=== PATIENT | male | born 1960 | race African-American/Black ===

== ENCOUNTER 2016-12-04 16:58 | Inpatient (IN) ==
[2016-12-04] MEDS ORDERED: ALUM/MAG/SIMETH/LIDO VISC 1:1 30 ML BOTTLE PO STA (17:38)
[2016-12-04] MEDS ORDERED: PANTOPRAZOLE 40 MG VIAL IV STA (17:38)
[2016-12-04] MEDS ORDERED: ONDANSETRON 4 MG/2 ML VIAL IV STA (17:38)
--- NOTE | 2016-12-04 17:42 | Emergency Department Note ---
Arrival - Arrival Chief Complaint: Non-Specific Stated Complaint: low heart rate ED Nursing Triage Note: c/o HR running 35 on monday. hx: CHF Mode of Arrival: Wheelchair Limitations: No Limitations Source: Patient, Family Time Seen by Provider: 12/04/16 17:36 - History of Present Illness HPI Narrative: This 56-year-old black male presents with one-week of profound weakness which began with central chest pain associated with nausea, dry heaves, diaphoresis, and shortness of breath. Symptoms persisted throughout the week and on Monday, 3 days ago, he decided to go the doctor. At the doctor he was told he had a heart rate in the 30s and needed to go the emergency room for evaluation. He did not come until today as this was his alleged first chance to come. Nausea, vomiting, diaphoresis, and central chest pressure pain have resolved however he still feels profoundly weak. Likewise in the last week he has developed symptoms of orthopnea and PND. He denies any pedal edema. Also in the mix is complaints of heartburn, water brash, and midepigastric discomfort. Currently at rest the patient is in no acute distress. Onset (ago): day(s) (Patient presents 3 days post onset of symptoms) Consistency: constant Severity: moderate Allergies/Adverse Reactions: Allergies Allergy/AdvReac Type Severity Reaction Status Date / Time Penicillins Allergy ANAPHYLAXIS Verified 08/15/16 04:44 Home Medications: Home Medications Medication Instructions Recorded Confirmed Type Aspirin EC Tab 81 mg PO DAILY 07/21/16 08/15/16 History Cetirizine HCl [Cetirizine Tab] 10 mg PO DAILY 07/21/16 08/15/16 History Cholecalciferol (Vitamin D3) 5,000 unit PO DAILY 07/21/16 08/15/16 History [Vitamin D3] Cyanocobalamin Tab [Vitamin B12 500 mcg PO DAILY 07/21/16 08/15/16 History Tab] Fluticasone 50 Mcg Nasal [place] 1 spray BOTH NARES DAILY 07/21/16 08/15/16 History [Flonase Nasal [place]] Montelukast Tab [Singulair Tab] 10 mg PO BEDTIME 07/21/16 08/15/16 History Sertraline [Zoloft] 50 mg PO DAILY 07/21/16 08/15/16 History Simvastatin 20 mg PO BEDTIME 07/21/16 08/15/16 History amLODIPine [Norvasc] 10 mg PO DAILY 07/21/16 08/15/16 History Carvedilol [Coreg] 3.125 mg PO BID #60 tablet 07/24/16 08/15/16 Rx Insulin Glargine,Hum.rec.anlog 10 unit SUBCUT BEDTIME 08/08/16 08/15/16 History [Lantus SoloStar] Latanoprost [Latanoprost 0.005 % 1 drop BOTH EYES BEDTIME 08/08/16 08/15/16 History Oph Soln] Minoxidil 2.5 mg PO BID 08/08/16 08/15/16 History Furosemide Tab [Lasix Tab] 80 mg PO BID DIURETIC #60 tablet 08/12/16 08/15/16 Rx Levothyroxine Tab [Synthroid Tab] 50 mcg PO DAILY@0700 #30 tablet 08/12/1608/15 Rx Review of System - Review of System 12 point system: reviewed and no additional remarkable complaints except as stated - Review of System Constitutional: Present: as per HPI Respiratory: Present: as per HPI Cardiovascular: Present: as per HPI Gastrointestinal: Present: as per HPI Medical,Surgical,& Family Hx - Medical History Cardio: History of: CHF, Hypertension (30 years with echocardiogram showing LVH with normal LVEF) Psychological: History of: Depression Endocrine: History of: Diabetes Mellitus (IDDM) (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), Dyslipidemia Rheumatology: History of;: Gout Respiratory: History of: Pneumonia Renal: History of: Renal Failure - Surgical History HEENT Surgeries: Surgical HX of: Eye Surgery (Bilateral cataract removal) Abdominal Surgeries: Patient denies: Abdominal Surgery - Family History Family History: Reports;: Family Diabetes (Father), Family Heart Disease ([place]- Mother and Father) - Social History Smoking Status: Never smoker Frequency of Alcohol Use: None Type of Drug Use: None Exam Physical Examination: GENERAL: Well developed, well nourished black male in no acute distress. HEENT: Normocephalic. No trauma. Moist mucous membranes. EOMI. PERRLA. ENT NML NECK: Supple. No adenopathy. CARDIAC: Regular. No murmurs. Heart rate 40 CHEST: Clear to auscultation. No respiratory distress. O2 sat 97% ABDOMEN: Soft. Midepigastric tenderness. Active bowel sounds. EXTREMITIES: No trauma. Normal ROM. No pedal edema. SKIN: No diaphoresis. No rash. NEURO: Alert. Neuro intact no focal deficits. Vital Signs: Vital Signs Temperature 97.5 F L 12/04/16 17:21 Pulse Rate 35 L 12/04/16 17:21 Respiratory Rate 18 12/04/16 17:49 Blood Pressure 197/57 12/04/16 17:21 O2 Sat by Pulse Oximetry 97 12/04/16 17:06 Course - Reevaluation(s) Reevaluation #1: Discussed with patient the need for hospitalization for severe bradycardia associated with recent OK as well as anemia. - Consultations Consultation #1: Discussed with Dr. emery who will admit for further evaluation and treatment. Results - Labs CBC & BMP: 12/04/16 17:36 Labs: I reviewed the laboratory noted the positive cardiac's as well as a greatly elevated BNP. Likewise notable is the very low hematocrit. - Impressions EKG: Third-degree heart block with ventricular rate and independent atrial rate both 35-[address] changes with evidence of anteroseptal infarct age unknown. - Diagnostic Findings Procedure: Chest x-ray: image reviewed by me, report reviewed by me ( Cardiomegaly otherwise unremarkable) Disposition Clinical Impression: Heart block, Recent [place], Congestive failure, Diabetes, Hypertension, Hyperlipidemia Case discussed with: patient, patient's family Condition: Guarded Time of Disposition: 19:20
[2016-12-04 17:59] LABS: Basophils # 0.1 10*3/uL (0.0-0.2); Basophils % 1.1 % (0.0-0.8); Eosinophils # 0.2 10*3/uL (0.0-0.87); Hematocrit 28.3 VOL% (42.0-52.0); Hemoglobin 9.1 GM/DL (14.0-18.0); Immature Granulocytes % 0.5 %; Immature Granulocytes Absolute 0.03 #; Lymphocytes # 0.9 10*3/uL (1.4-4.0); Lymphocytes % 12.8 % (21.2-54.2); Mean Corpuscular HGB Conc 32.2 GM/DL (32-36); Mean Corpuscular Hemoglobin 27 PG (27-34); Mean Corpuscular Volume 82.3 FL (87-102); Mean Platelet Volume 12.6 FL (9.6-12.0); Monocytes # 0.5 10*3/uL (0.11-0.8); Monocytes % 7.1 % (1.7-12.7); Neutrophils % 75.5 % (38.7-73.9); Platelet Count 203 T/CUMM (130-400); Red Blood Count 3.44 MC/CUMM (3.8-5.5); Red Cell Distribution Width 14.9 % (9.3-17.3); White Blood Count 6.6 T/CUMM (4-12)
[2016-12-04] MEDS ORDERED: ALUM/MAG/SIMETH/LIDO VISC 1:1 30 ML BOTTLE PO ONE (17:59)
[2016-12-04] MEDS ORDERED: PANTOPRAZOLE 40 MG VIAL IV ONE (17:59)
[2016-12-04] MEDS ORDERED: ONDANSETRON 4 MG/2 ML VIAL ONE (17:59)
--- NOTE | 2016-12-04 18:02 | XRay Report ---
Portable chest Date: 12/04/2016 Clinical history: Chest pain Comparison: 08/15/2016 Technique: Portable AP sitting chest Findings: The heart is minimally enlarged with chronic scarring in the lungs. Stable mediastinum with degenerative changes. Impression: Minimal cardiomegaly with chronic scarring in the lungs. PROCEDURE INTERPRETED AT [facility] Final Report Signed by: Dr. Shell Grissom
[2016-12-04 18:10] LABS: INR 1.1; PT Patient Result 11.8 SECS; Partial Thromboplastin Time 28.3 SECS (0-40)
[2016-12-04 18:24] LABS: Troponin I Only 0.125 NG/ML (0.00-0.045)
[2016-12-04] MEDS ORDERED: ASPIRIN 325 MG TABLET PO STA (18:57)
[2016-12-04] MEDS ORDERED: NITROGLYCERIN 2% OINT 1 INCH/GM PACK TOP STA (18:57)
[2016-12-04] MEDS ORDERED: FUROSEMIDE 40 MG/4 ML VIAL IV STA (18:58)
[2016-12-04] MEDS ORDERED: ASPIRIN 325 MG TABLET ONE (19:08)
[2016-12-04] MEDS ORDERED: ASPIRIN EC 325 MG TABLET PO ONE (19:08)
[2016-12-04] MEDS ORDERED: FUROSEMIDE 40 MG/4 ML VIAL ONE (19:08)
[2016-12-04] MEDS ORDERED: NITROGLYCERIN 2% OINT 1 INCH/GM PACK TOP ONE (19:08)
[2016-12-04 19:15] LABS: Albumin 3.3 G/DL (3.4-5.0); Bilirubin,Total 0.4 MG/DL (0.2-1.0); Calcium 7.6 MG/DL (8.5-10.1); Potassium 3.7 MMOL/L (3.5-5.1); Total Protein 6.5 G/DL (6.4-8.3)
[2016-12-04] MEDS ORDERED: GLUCAGON 1 MG VIAL IM PRN (19:15)
[2016-12-04] MEDS ORDERED: ONDANSETRON 4 MG/2 ML VIAL IV PRN (19:15)
[2016-12-04] MEDS ORDERED: HYDROmorphone 2 MG/1 ML VIAL IV PRN (19:15)
[2016-12-04] MEDS ORDERED: DEXTROSE 50% 25 GM/50 ML VIAL IV PRN (19:15)
[2016-12-04] MEDS ORDERED: NITROGLYCERIN DRIP 50 MG/250 ML BOTTLE IV ONE (20:02)
--- NOTE | 2016-12-04 20:23 | Cardiology History & Physical ---
History of Present Illness History of present illness: Cardiology history and physical 56-year-old man admitted with increasing shortness of breath and weakness and uncontrolled blood pressure. Blood pressure is 200/60. EKG shows sinus rhythm with third-degree heart block and a ventricular escape rate of 40. No chest pain. Patient also has chronic renal failure which has progressed. BUN 102 and creatinine 5.60 today. The patient was last hospitalized August 08, 2016 with uncontrolled high blood pressure and congestive heart failure. BUN was 25 creatinine 2.8 when tested 08/08/2016. He is followed by Dr. Umesh Walton. Echo Doppler at that time showed LVH with good ejection fraction. The patient has long-standing hypertension for 30 years and long-standing diabetes. Blood sugar today is 300. Patient does have a history of noncompliance. Patient states that last week he had a viral illness with nausea and vomiting and could not keep any food down. He did not take his medications. The patient was seen by Dr. Gunnar Montes his local physician this past and was told his heart rate was slow. He was instructed to return on Monday for reevaluation. The chest x-ray shows cardiomegaly with CHF. BNP level 2938. First CPK 433 and troponin level 0.125. No history of myocardial infarction. Lifetime non-smoker. Denies alcohol abuse. 5 feet 6 inches tall, 191 pounds. Occasional GE reflux symptoms. Denies melena. No documented peptic ulcer. The patient does have long- standing hypertension takes minoxidil 2.5 mg twice daily along with Lasix 80 mg twice daily carvedilol 3.25 mg twice daily and 10 mg amlodipine. His father was diabetic and of a heart attack age 56. His mother had a pacemaker and a heart attack at age 57. He has 10 siblings all of whom have hypertension. One sister had a heart attack and coronary stent. Initial lab data White count 6.6 hemoglobin 9.1 hematocrit 28.3 MCV 82 Sodium 143 potassium 3.7 chloride 106 CO2 22 BUN 102 creatinine 5.60 Glucose 300 BNP 2938 troponin 0.125 Blood pressure 196/70 pulse is 35-40 and slightly irregular O2 sat 97% on 2 L. Patient is awake alert and in no distress. Poor oral hygiene. No carotid bruit. Decreased breath sounds with few basilar crackles .no murmur abdomen obese soft benign. Femoral pulses 2+ No bruit. Distal pulses 1+.. 1+ leg edema. Impression Third-degree heart block Uncontrolled hypertension Recurrent congestive heart failure Chronic renal failure which has progressed Creatinine today 5.60 and BUN 102. Creatinine was 2.8 BUN 25 when tested August 08, 2016. Recent viral illness 1 week ago with nausea and vomiting causing volume depletion 5 feet 6 inches tall 191 pounds Microcytic anemia hemoglobin 9.1 MCV 82 Echo Doppler July 2016 showed LVH with normal EF Insight diabetic with poor control EKG shows sinus rhythm with third-degree heart block, left axis deviation right bundle branch block History of noncompliance with medication Last hospitalized July 2016 with CHF and uncontrolled blood pressure Plan Admit to CCU IV nitro glycerin Echo Doppler Will need dual-chamber pacemaker Consult Dr. Umesh Walton for chronic renal failure progression No family present at this time BMP, hemoglobin A1c level, recheck troponin in a.m. Home Medications Medication Instructions Recorded Confirmed Type Aspirin EC Tab 81 mg PO DAILY 07/21/16 08/15/16 History Cetirizine HCl [Cetirizine Tab] 10 mg PO DAILY 07/21/16 08/15/16 History Cholecalciferol (Vitamin D3) 5,000 unit PO DAILY 07/21/16 08/15/16 History [Vitamin D3] Cyanocobalamin Tab [Vitamin B12 500 mcg PO DAILY 07/21/16 08/15/16 History Tab] Fluticasone 50 Mcg Nasal [place] 1 spray BOTH NARES DAILY 07/21/16 08/15/16 History [Flonase Nasal [place]] Montelukast Tab [Singulair Tab] 10 mg PO BEDTIME 07/21/16 08/15/16 History Sertraline [Zoloft] 50 mg PO DAILY 07/21/16 08/15/16 History Simvastatin 20 mg PO BEDTIME 07/21/16 08/15/16 History amLODIPine [Norvasc] 10 mg PO DAILY 07/21/16 08/15/16 History Carvedilol [Coreg] 3.125 mg PO BID #60 tablet 07/24/16 08/15/16 Rx Insulin Glargine,Hum.rec.anlog 10 unit SUBCUT BEDTIME 08/08/16 08/15/16 History [Lantus SoloStar] Latanoprost [Latanoprost 0.005 % 1 drop BOTH EYES BEDTIME 08/08/16 08/15/16 History Oph Soln] Minoxidil 2.5 mg PO BID 08/08/16 08/15/16 History Furosemide Tab [Lasix Tab] 80 mg PO BID DIURETIC #60 tablet 08/12/16 08/15/16 Rx Levothyroxine Tab [Synthroid Tab] 50 mcg PO DAILY@0700 #30 tablet 08/12/1608/15 Rx Allergies Allergy/AdvReac Type Severity Reaction Status Date / Time Penicillins Allergy ANAPHYLAXIS Verified 08/15/16 04:44 Medical,Surgical,& Family Hx - Medical History Cardio: History of: CHF, Hypertension (30 years with echocardiogram showing LVH with normal LVEF) Psychological: History of: Depression Endocrine: History of: Diabetes Mellitus (IDDM) (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), Dyslipidemia, Thyroid Disorder Rheumatology: History of;: Gout Respiratory: History of: Pneumonia Renal: History of: Renal Failure Hematology: History of: Anemia - Surgical History HEENT Surgeries: Surgical HX of: Eye Surgery (Bilateral cataract removal) Abdominal Surgeries: Patient denies: Abdominal Surgery - Family History Family History: Reports;: Family Diabetes (Father), Family Heart Disease ([place]- Mother and Father) - Social History Smoking Status: Never smoker Frequency of Alcohol Use: None Type of Drug Use: None Cardiology Physical Exam - Constitutional Vitals: Vital Signs Temp Pulse Resp BP Pulse Ox 98.7 F 37 L 16 230/74 100 12/04/16 19:44 12/04/16 19:58 12/04/16 19:58 12/04/16 19:58 12/04/16 19:58 Intake and Output 12/04/16 12/04/16 12/04/16 07:59 15:59 23:59 Other: Weight 99.337 kg Patient Weight 12/05/16 00:59 Weight 99.337 kg Result/EKG - Labs CBC & BMP: 12/04/16 17:36 12/04/16 17:39 Labs: Laboratory Results - last 24 hr 12/04/16 19:38 POC Glucose 264 H
[2016-12-04] MEDS ORDERED: INSULIN GLARGINE 100 UNIT/ML SUBCUT SCH (21:00)
[2016-12-04] MEDS: NITROGLYCERIN DRIP 50 MG/250 ML BOTTLE IV SCH (21:02)
[2016-12-04] MEDS: INSULIN GLARGINE 100 UNIT/ML SUBCUT SCH (21:03)
[2016-12-04] MEDS: SIMVASTATIN 20 MG TABLET PO SCH (21:24)
[2016-12-04] MEDS: MONTELUKAST 10 MG TABLET PO SCH (21:25)
[2016-12-04] MEDS: MINOXIDIL 2.5 MG TABLET PO SCH (21:25)
[2016-12-04] MEDS: INSULIN REGULAR 100 UNIT/ML SUBCUT SCH (21:33)
[2016-12-04 22:01] LABS: Troponin I Only 0.127 NG/ML (0.00-0.045)
[2016-12-04] MEDS: LATANOPROST 0.005% OPH SOLN 2.5 ML BOTTLE BOTH EYES SCH (22:48)
--- NOTE | 2016-12-05 06:05 | EKG Report ---
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
[2016-12-05 06:08] LABS: INR 1.1; PT Patient Result 11.5 SECS
[2016-12-05] MEDS: LEVOTHYROXINE 50 MCG TABLET PO SCH ×2 (06:24→06:28)
[2016-12-05 06:29] LABS: Calcium 7.4 MG/DL (8.5-10.1); Osmolality,Calculated 320.8 MOS/KG (273-304); Potassium 3.8 MMOL/L (3.5-5.1); Risk Ratio 2.92; VLDL CHOLESTEROL 13.6 MG/DL
[2016-12-05 06:40] LABS: Troponin I Only 0.131 NG/ML (0.00-0.045)
--- NOTE | 2016-12-05 08:23 | Cardiology Progress Note ---
Rupert Mix Rachel RN, am scribing for, and in the presence of, Kofi Boggs MD 08:21. Assessment and Plan (1) Heart block AV third degree Status: Acute Assessment and plan: Plan for dual-chamber pacemaker. Current Visit: Yes (2) Diabetes Status: Chronic Assessment and plan: This is clinically stable. Continue current plan of care with insulin sliding scale Current Visit: Yes (3) Chronic kidney disease, stage III (moderate) Status: Acute Assessment and plan: Creatinine noted to be 5.[address] aWlton has been consulted to evaluate patient Current Visit: No (4) Elevated troponin Status: Acute Assessment and plan: Trivial troponin noted. EKG does not reveal any acute findings. He has no angina. This could be secondary to patient's heart failure and/or Renal failure. BNP of 2938 noted. Creatinine of 5.9 noted. Current Visit: No (5) Medical non-compliance Status: Acute Assessment and plan: Counseled patient on importance of medication compliance. Current Visit: No (6) Uncontrolled hypertension Status: Chronic Assessment and plan: Adjust rx Current Visit: No (7) Insulin dependent diabetes mellitus Status: Chronic Current Visit: No (8) Acute CHF Status: Acute Assessment and plan: BNP of 2938 noted. We'll recheck an echocardiogram. This appears to be be secondary to his severe renal insufficiency and/or his severe bradycardia. Current Visit: No Cardiology - PN: Subj Interval history: 56-year-old man admitted with increasing shortness of breath and weakness and uncontrolled blood pressure. Blood pressure is 200/60. EKG shows sinus rhythm with third-degree heart block and a ventricular escape rate of 40. No chest pain. Patient also has chronic renal failure which has progressed. BUN 102 and creatinine 5.60 today. The patient was last hospitalized August 08, 2016 with uncontrolled high blood pressure and congestive heart failure. BUN was 25 creatinine 2.8 when tested 08/08/2016. He is followed by Dr. Umesh Walton. Echo Doppler at that time showed LVH with good ejection fraction. The patient has long-standing hypertension for 30 years and long-standing diabetes. Patient does have a history of noncompliance. The patient was seen by Dr. Gunnar Mcadamston his local physician this past and was told his heart rate was slow. The chest x-ray shows cardiomegaly with CHF. BNP level 2938. First CPK 433 and troponin level 0.125. Echo Doppler July 2016 revealed LVH with normal ejection fraction. Patient was seen and examined in the CCU. Patient is resting in bed in no acute distress. He is currently requiring oxygen at 2 L via nasal cannula. Third-degree heart block noted per clock smith with heart rates in the 30' s. He is asymptomatic at rest but came in with fatigue and dyspnea. He also had N/V prior to admission, though this has resolved. Blood pressure is stable with systolic blood pressure of 120 noted on a Nitroglycerin drip infusing at 10 g. He currently denies CP denies shortness of breath, nausea, vomiting and palpitations. Troponin today is noted to be 0.131 which is essentially stable ( 0.127 yesterday). His creatinine is noted to be 5.9. He reports that he is not on hemodialysis. Nephrology has been consulted and will see patient today. Potassium is 3.8, magnesium is pending. Echocardiogram ordered for today. AST and ALT are also mildly elevated. Active Medications Amlodipine Besylate (Norvasc) 10 mg PO DAILY [facility] Aspirin () 81 mg PO DAILY [facility] Cetirizine HCl (Zyrtec Tab) 10 mg PO DAILY [facility] Cholecalciferol (Vitamin D3) 5,000 unit PO DAILY [facility] Dextrose/Water (D50) 25 gm IV PRN PRN PRN Reason: Hypoglycemia with IV access Fluticasone Propionate (Flonase) 1 spray BOTH NARES DAILY [facility] Glucagon () 1 mg IM PRN PRN PRN Reason: Hypoglycemia w/o IV access Nitroglycerin/Dextrose () 50 mg in 250 mls @ 6 mls/hr IV TITRATE RUBINA; 20 MCG/ MIN PRN Reason: Protocol Last Titration: 12/05/16 07:06 Dose: 10 mcg/min, 3 mls/hr Insulin Glargine (Lantus) 10 unit SUBCUT BID [facility] Last Admin: 12/04/16 21:03 Dose: Not Given Insulin Human Regular (Humulin R) 0 unit SUBCUT ACHS RUBINA PRN Reason: Protocol Last Admin: 12/04/16 21:33 Dose: 6 unit Latanoprost (Xalatan) 1 drop BOTH EYES BEDTIME RUBINA Last Admin: 12/04/16 22:48 Dose: Not Given Levothyroxine Sodium (Synthroid Tab) 50 mcg PO DAILY@0700 [facility] Last Admin: 12/05/16 06:28 Dose: Not Given Minoxidil (Loniten) 2.5 mg PO BID [facility] Last Admin: 12/04/16 21:25 Dose: 2.5 mg Montelukast Sodium (Singulair Tab) 10 mg PO BEDTIME [facility] Last Admin: 12/04/16 21:25 Dose: 10 mg Ondansetron HCl (Zofran Inj) 4 mg IV Q4H PRN PRN Reason: Nausea/Vomiting Sertraline HCl (Zoloft) 50 mg PO DAILY [facility] Simvastatin (Zocor) 20 mg PO BEDTIME [facility] Last Admin: 12/04/16 21:24 Dose: 20 mg Exam (Progress Note) - Constitutional Vitals: Period Temp Pulse Resp BP Sys/Schmidt Pulse Ox Last 24 Hr 98.3 F-98.7 F 29-73 9-24 118-230/42-74 94-100 General appearance: no acute distress, over weight - Head Head exam: Present: normal inspection, normocephalic, atraumatic - Respiratory Respiratory exam: Present: clear to auscultation bilaterally. Absent: accessory muscle use, chest wall tenderness, rales, rhonchi, stridor, wheezes - Cardiovascular Cardiovascular exam: Present: bradycardia, irregular rhythm. Absent: carotid bruit, gallop, rubs, systolic murmur - GI/Abdominal GI/Abdominal exam: Present: normal bowel sounds, soft. Absent: ascites, distended, firm, mass, tenderness - Extremities Exam Extremities exam: Present: normal inspection, normal capillary refill, other ( Normal lower extremity pulses). Absent: calf tenderness, edema - Neurological Exam Neurological exam: Present: alert, oriented X3, normal gait - Psychiatric Psychiatric exam: Present: normal affect, normal mood. Absent: agitated, anxious, depressed - Skin Skin exam: Present: normal color, warm. Absent: cyanosis, dry Result/EKG - Labs CBC & BMP: 12/04/16 17:36 12/05/16 05:24 Lab Results: I have reviewed the past 24 hour labs (Third-degree AV heart block) Labs: Laboratory Results - last 24 hr 12/04/16 12/04/16 12/05/16 19:38 21:19 05:24 INR PT Patient/Control Mix Sodium Potassium Chloride Carbon Dioxide Anion Gap BUN Creatinine GFR Calculation BUN/Creatinine Ratio Glucose POC Glucose 264 H Calculated Osmolality Calcium Total Creatine Kinase 434 H 349 H CK-MB (CK-2) 4.0 H 3.2 Troponin I 0.127 H 0.131 H Triglycerides Cholesterol LDL Cholesterol VLDL Cholesterol HDL Cholesterol Heart Disease Risk Ratio 12/05/16 12/05/16 05:24 05:24 INR 1.1 PT Patient/Control Mix 11.5 Sodium 144 Potassium 3.8 Chloride 105 Carbon Dioxide 26 Anion Gap 16.8 H BUN 106 H Creatinine 5.90 H GFR Calculation 14 BUN/Creatinine Ratio 17.00 Glucose 128 H POC Glucose Calculated Osmolality 320.8 H Calcium 7.4 L Total Creatine Kinase CK-MB (CK-2) Troponin I Triglycerides 68 Cholesterol 108 LDL Cholesterol 69.0 VLDL Cholesterol 13.6 HDL Cholesterol 37 L Heart Disease Risk Ratio 2.92 Ambrose Mix Michael, MD, personally performed the services described in this documentation, ascribed by Alla Emery RN in my presence, and it is both accurate and complete 822 .
--- NOTE | 2016-12-05 08:29 | Electrophysiology Consultation ---
History of Present Illness - Data of Consult Patient: new to practice Consult date: 12/05/16 Requesting Physician: Kofi Boggs - Consult Narrative Reason for consult: 3AVB History of present illness: Mr. Yu is a 56 year old AA male, pt of dr. Henry. Chronic kidney disease, hypertension, diabetes mellitus, gout, medication noncompliance. He was hospitalized in June 2016, for diastolic heart exacerbation, and was treated medically. He had mild demand ischemia at that time, which was treated medically. A week ago, he developed weakness, which did not resolve and finally was seen in the emergency room. She was in complete heart block. There was no syncope or palpitations. He has some mild chest discomfort. Has chronic lower extremity swelling. His CKD worsened. He was also severely hypertensive, which was controlled with nitro drip. Now feeling better, still in complete heart block with junctional escape rhythm around 40 beats per minutes. Chest x-ray showed cardiomegaly, minimal pulmonary congestion. Echo showed LVH, preserved systolic function, mild aortic valve sclerosis, without stenosis or insufficiency. Mild mitral regurgitation. Labs - crit 28. CC: Coy Martin MD - Home Medications and Allergies Home Medications: Home Medications Medication Instructions Recorded Confirmed Type Aspirin EC Tab 81 mg PO DAILY 07/21/16 12/04/16 History Cetirizine HCl [Cetirizine Tab] 10 mg PO DAILY 07/21/16 12/04/16 History Cholecalciferol (Vitamin D3) 5,000 unit PO DAILY 07/21/16 08/15/16 History [Vitamin D3] Cyanocobalamin Tab [Vitamin B12 500 mcg PO DAILY 07/21/16 12/04/16 History Tab] Fluticasone 50 Mcg Nasal [place] 1 spray BOTH NARES DAILY 07/21/16 12/04/16 History [Flonase Nasal [place]] Sertraline [Zoloft] 50 mg PO DAILY 07/21/16 12/04/16 History amLODIPine [Norvasc] 10 mg PO DAILY 07/21/16 12/04/16 History Carvedilol [Coreg] 3.125 mg PO BID #60 tablet 07/24/16 12/04/16 Rx Insulin Glargine,Hum.rec.anlog 10 unit SUBCUT BEDTIME 08/08/16 12/04/16 History [Lantus SoloStar] Latanoprost [Latanoprost 0.005 % 1 drop BOTH EYES BEDTIME 08/08/16 12/04/16 History Oph Soln] Minoxidil 2.5 mg PO BID 08/08/16 12/04/16 History Furosemide Tab [Lasix Tab] 80 mg PO BID DIURETIC #60 tablet 08/12/16 12/04/16 Rx Levothyroxine Tab [Synthroid Tab] 50 mcg PO DAILY@0700 #30 tablet 08/12/1612/04 Rx metOLazone [Metolazone] 5 mg PO BID 12/04/16 12/04/16 History methylPREDNISolone DOSEPAK [Medrol 4 mg PO DIRECTED 12/04/16 12/04/16 History Dosepak] Allergies/Adverse Reactions: Allergies Allergy/AdvReac Type Severity Reaction Status Date / Time Penicillins Allergy ANAPHYLAXIS Verified 08/15/16 04:44 Medical,Surgical,& Family Hx - Medical History Cardio: History of: CHF, Hypertension (30 years with echocardiogram showing LVH with normal LVEF) Psychological: History of: Depression Endocrine: History of: Diabetes Mellitus (IDDM) (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), Dyslipidemia, Thyroid Disorder Rheumatology: History of;: Gout Respiratory: History of: Pneumonia Renal: History of: Renal Failure Hematology: History of: Anemia - Surgical History HEENT Surgeries: Surgical HX of: Eye Surgery (Bilateral cataract removal) Abdominal Surgeries: Patient denies: Abdominal Surgery - Family History Family History: Reports;: Family Diabetes (Father), Family Heart Disease ([place]- Mother and Father) - Social History Smoking Status: Never smoker Frequency of Alcohol Use: None Type of Drug Use: None 12 point system: reviewed and no additional remarkable complaints except as stated Exam - Constitutional Vitals: Period Temp Pulse Resp BP Sys/Schmidt Pulse Ox Last 24 Hr 98.3 F-98.7 F 29-73 9-24 118-230/42-74 94-100 General appearance: no acute distress - Head Head exam: Present: normal inspection, other (elev jvp) - Eye Eye exam: Absent: conjunctival injection Pupils: Absent: dilated - ENT ENT exam: Present: normal external ear exam - Neck Neck exam: Present: normal inspection - Respiratory Respiratory exam: Present: decreased breath sounds - Cardiovascular Cardiovascular exam: Present: bradycardia, regular rate and rhythm, systolic murmur - GI/Abdominal GI/Abdominal exam: Present: normal bowel sounds - Extremities Exam Extremities exam: Present: normal inspection, normal capillary refill, other ( nu ulcers). Absent: edema - Back Exam Back exam: Present: normal inspection - Neurological Exam Neurological exam: Present: alert, oriented X3 - Psychiatric Psychiatric exam: Present: normal affect, normal mood - Skin Skin exam: Present: normal color, warm. Absent: cyanosis Results - Labs CBC & BMP: 12/04/16 17:36 12/05/16 05:24 Lab Results: I have reviewed the past 24 hour labs Assessment and Plan (1) Heart block AV third degree Status: Acute Assessment and plan: 56-year-old AA male, with symptomatic bradycardia, complete heart block, severe CKD, hypertension, medication noncompliance, diabetes, gout. -We discussed risks and benefits of management options. We will proceed with a dual-chamber pacemaker implant. Keep NPO. -We discussed importance of medication compliance to avoid worsening of his comorbidities. -PCN allergy. Will use Vancomycin for abx prophylaxis Current Visit: Yes (2) Congestive heart failure Status: Acute Current Visit: No (3) Renal failure Status: Acute Current Visit: No (4) Elevated troponin Status: Acute Current Visit: No (5) Medical non-compliance Status: Acute Current Visit: No (6) Uncontrolled hypertension Status: Chronic Current Visit: No (7) Anemia Status: Acute Current Visit: No (8) Diabetes Status: Chronic Current Visit: Yes
--- NOTE | 2016-12-05 08:30 | History and Physical Update ---
Sedation H&P Update - History and Physical H&P was reviewed, the patient examined and there: are no changes in the patients condition since last H&P was completed. - Dictation Physical: refer to H&P completed by admitting physician - Physical Exam Mental Status: alert and oriented Heart: other (regular, bradycardic) Lung: clear to auscultation Abdomen: within normal limits Vitals: within normal limits - Sedation Plan for Sedation: moderate Patient Consent: Procedure disscussed with patient and patinet has consented., Risks and benefits were discussed with patient,including infection,, bleeding, injury to surrounding structures, seizure, temporary nerve, Patient understands and accepts potential risks/benefits and agrees to ASA Class: IV Airway Assessment: Class II: Soft palate, uvula, fauces visible
[2016-12-05 08:53] LABS: Troponin I Only 0.108 NG/ML (0.00-0.045)
[2016-12-05] MEDS ORDERED: amLODIPine 10 MG TABLET PO SCH (09:00)
[2016-12-05 09:13] LABS: Free T4 (Free Thyroxine) 1.01 NG/DL (0.76-1.46); Thyroid Stimulating Hormone 2.78 uIU/ml (0.358-3.74)
[2016-12-05] MEDS ORDERED: VANCOMYCIN 500 MG VIAL IRRIG ONE (09:35)
[2016-12-05] MEDS ORDERED: VANCOMYCIN INJ 1,000 MG in SODIUM CHLORIDE 0.9% 250 ML IV ONE ×2 (09:35→23:00)
[2016-12-05] MEDS ORDERED: MIDAZOLAM 2 MG/2 ML VIAL ONE (09:40)
[2016-12-05] MEDS: INSULIN REGULAR 100 UNIT/ML SUBCUT SCH ×4 (09:40→22:10)
[2016-12-05] MEDS ORDERED: HEPARIN/NACL 0.9% 2 UNITS/ML 500 ML IV ONE (09:40)
[2016-12-05] MEDS ORDERED: fentaNYL 100 MCG/2 ML VIAL ONE (09:40)
[2016-12-05] MEDS ORDERED: LIDOCAINE 1% 20 ML VIAL ONE (09:40)
[2016-12-05] MEDS ORDERED: VANCOMYCIN 500 MG VIAL ONE (09:42)
--- NOTE | 2016-12-05 09:42 | ECHO Report ---
Danyn Yu Exam Date: 12/05/2016 08:54 Referring Physician: Technologist: Joey ESPINAL Age: 56 Ht (in): Wt (lb): Gender: M Exam Location: [facility] Echo Indications: Heart block, HTN, CHF, diabetes BP: / HR: Rhythm: Sinus Technical Quality: IMPRESSIONS Normal left ventricle size, with moderate concentric hypertrophy, with normal systolic function. Estimated left ventricle ejection fraction 55%. Mildly dilated right-sided heart chambers, with normal right ventricular systolic function. Mild left atrial enlargement. Mild, eccentric systolic and diastolic mitral regurgitation. The patient is in complete heart block, bradycardic. Mild aortic valve sclerosis, without stenosis or insufficiency. MEASUREMENTS (Male / Female) Normal Values 2D ECHO LV Diastolic Diameter PLAX 4.0 cm 4.2 - 5.9 / 3.9 - 5.3 cm LV Systolic Diameter PLAX 2.4 cm LV Fractional Shortening PLAX 39.5 % IVS Diastolic Thickness 1.7 cm 0.6 - 1.0 / 0.6 - 0.9 cm LVPW Diastolic Thickness 1.6 cm 0.6 - 1.0 / 0.6 - 0.9 cm RV Internal Dim ED PLAX 3.1 cm Aortic Root Diameter 2.7 cm LA Systolic Diameter LX 5.0 cm 3.0 - 4.0 / 2.7 - 3.8 cm DOPPLER TR Peak Velocity 303.0 cm/s TR Peak Gradient 36.7 mmHg FINDINGS Left Ventricle Normal left ventricle size, with moderate concentric hypertrophy, with normal systolic function. Estimated left ventricle ejection fraction 55%. Insufficient data to estimate diastolic function. Right Ventricle The right ventricle is mildly dilated, with a normal systolic function. Right Atrium Mild right atrial enlargement. Left Atrium Mild left atrial enlargement. Mitral Valve Structurally normal mitral valve, with systolic and diastolic mild, eccentric mitral regurgitation. Aortic Valve Mild aortic valve sclerosis, without stenosis or insufficiency. Tricuspid Valve Mild tricuspid valve regurgitation. Tricuspid regurgitation velocities suggest a PAP of 37 mmHg + RAP. Pulmonic Valve Morphologically normal pulmonic valve. Pericardium No pericardial effusion. Aorta Normal size aortic root and proximal ascending aorta. Trevor Lowery (Electronically Signed) Final Date: 05 December 2016 09:41
[2016-12-05] MEDS ORDERED: TISSUE ADHESIVE 1 EACH APPLICATOR TOP ONE (10:53)
[2016-12-05] MEDS ORDERED: oxyCODONE/ACETAMINOPHEN 5-325 MG TABLET PO PRN (11:17)
--- NOTE | 2016-12-05 11:19 | Cardiac Pacemaker ---
- Preoperative diagnosis Date of Procedure:: 12/05/16 Preoperative Diagnosis: Documented nonreversible symptomatic bradycardia due to , third degree atrioventricular block Pre-op Diagnosis: same Post-op diagnosis: same Procedure: PROCEDURAL SUMMARY DDD pacemaker implant from left axillary access. Successful procedure, no complications. PLAN Bed rest for 6 hours. Keep pressure dressing in place. CXR, ECG stat. Vancomycin 1g iv. Routine post PM implant nursing care. DIAGNOSES Complete heart block Symptomatic bradycardia CKD HTN Sedation A timeout was performed. Conscious sedation was initiated and maintained with iv. Versed and fentanyl. The patient was continuously monitored by electrocardiography, pulse oximetry and NIBP. Antibiotic prophylaxis Iv. vancomycin was used prior to the procedure. PROCEDURE The left pectoral area was meticulously prepared with ChloroPrep surgical scrub. Sterile draping was applied and Ioban was used to cover the operation site. The image intensifier was draped with a sterile bag and positioned over the patient's chest. After infiltration with 1% lidocaine, an incision was made in the left infraclavicular area, parallel to the deltopectoral groove. The incision was carried down to the level of the pectoral fascia, with careful cauterization of all bleeders. A subcutaneous pocket was then created superficial to the pectoral fascia with sharp and blunt dissection and hemostasis was achieved. A cephalic vein cutdown was performed. The glidewire did not pass into the axillary vein and the vein was then tied down. A micropuncture kit was used to access the left axillary vein. A hydrophylic guidewire was inserted under fluoroscopic guidance. A 9Fr peel-away introducer was inserted over the guidewire. The dilator of the introducer was removed, the guidewire was secured to the drape, and the right ventricular lead was passed through the introducer and advanced to the right ventricular outflow tract under fluoroscopic guidance. The introducer sheath was then removed. The ventricular lead was positioned in the right ventricular cavity using a curved stiffening stylet. The curved stylet was replaced with a straight stylet which was advanced to the electrode tip and used to deploy the active fixation mechanism. The lead was tested repeatedly for stability. A second 9 Fr peel-away introducer was inserted over the guidewire. The dilator of the introducer was removed, the guidewire was secured to the drape, and the atrial lead was passed through the introducer and advanced to the right atrium. Under fluoroscopic guidance, the atrial electrode was then positioned in the right atrial cavity using a curved stylet and tested repeatedly for stability. Lead measurements were then determined to be satisfactory as detailed below. The leads were tested for stability and phrenic nerve stimulation was excluded with pacing at 10 Volts. The leads were anchored in the subcutaneous tissue with nonabsorbable suture on the anchoring sleeve near the point of entry to the vein. The PM generator was then attached to the leads and sealed in the prescribed manner. The guidewire was removed. The wound was then flushed with Ancef and closed using a double layer of 2-0 absorbable Vicryl sutures followed by a subcuticular running suture with 4-0 Monocryl, then Exofin. A sterile dressing, then a pressure dressing was applied. The device was programmed as detailed below. Implants Device: Medtronic Advisa DDDR PM, Model [id number], SN: [id number], location: left infraclavicular Right ventricular lead: Medtronic 5076-58, SN: [id number], location: RV septum Right atrial lead: Medtronic 5076-52, SN: [id number], location: RA appendage The implanted system is MRI conditional. Measurements RA bipolar: threshold 1.4 V @ 0.5 ms, P 1.7 mV, impedance 544 Ohm RV bipolar: threshold 0.9 V @ 0.5 ms, R 6.3 mV, impedance 881 Ohm Settings DDD 60/130 Mode switch on Anesthesia: moderate conscious sedation Surgeon / Physician: Trevor Lowery Spiral Weaver: other (Dillon) Estimated blood loss: minimal Specimens: none sent Condition: stable Disposition: floor - Medications / Follow-up
--- NOTE | 2016-12-05 12:06 | XRay Report ---
Exam: XR chest 1V portable Indication: Pacemaker placement Comparison study: 12/04/2016 Findings: Left chest pacemaker device and 2 wire leads are now noted in position. There is no pneumothorax. Minimal central and basilar interstitial prominence is noted, which is nonspecific but may represent mild atelectasis. The heart, mediastinum and bony structures are otherwise stable from prior. [place] megaly is noted. There is no focal consolidation, pneumothorax or pleural effusion identified. Impression: No pneumothorax or other acute complication following pacemaker placement. Stable mild cardiomegaly and probable basilar atelectasis. PROCEDURE INTERPRETED AT [facility] DEPARTMENT OF RADIOLOGY Final Report Signed by: Zhou Lee
[2016-12-05] MEDS: FLUTICASONE 50 MCG NASAL SPRAY 16 GM BOTTLE BOTH NARES SCH (12:17)
[2016-12-05] MEDS: INSULIN GLARGINE 100 UNIT/ML SUBCUT SCH ×2 (12:18→22:11)
[2016-12-05] MEDS: ASPIRIN EC 81 MG TABLET PO SCH (12:18)
[2016-12-05] MEDS: MINOXIDIL 2.5 MG TABLET PO SCH ×2 (12:19→22:14)
[2016-12-05] MEDS: CHOLECALCIFEROL 1,000 UNIT TABLET PO SCH (12:19)
[2016-12-05] MEDS: CETIRIZINE 10 MG TABLET PO SCH (12:20)
[2016-12-05] MEDS: SERTRALINE 50 MG TABLET PO SCH (12:20)
--- NOTE | 2016-12-05 12:57 | EKG Report ---
Stationary ECG Study [facility] Test Date: 12/05/2016 12:56:15 PM Pat Name: EVELIO HAYWOOD Department: Room: 129 Gender: M Gold Stamper: : 1960 Requested by: Trevor Lowery Order Number: [id number] Reading MD: JACINTO BROWN Intervals [place] Rate: 79 P: 63 WA: 222 QRS: 251 QRSD: 171 T: 82 QT: 478 QTc: 513 Interpretive Statements ELECTRONIC VENTRICULAR PACEMAKER at 79 BPM;; appears to be tracking normal sinus rhythm NST Electronically Signed On 12-05-16 13:54:50 CDT by JACINTO BROWN [email or web address]
--- NOTE | 2016-12-05 14:28 | Nephrology Consult Note ---
History of Present Illness Chief complaint: Increased BUN and creatinine History of present illness: Mr. Yu is a 56 year old male who is followed by Dr. Walton for chronic kidney disease in the outpatient setting. The patient was admitted to the hospital yesterday for slow heart rate. The patient states he was seen by his local family medical doctor a few days ago and was told that he had a slow heart rate. The patient had been having some problems of shortness of breath and occasional chest pain for the past week or so. The patient is also been having some nausea and vomiting for a few days now. Patient also complains of some occasional chest pain. The patient was noted to have a heart rate of around 32 on presentation. The patient is now status post pacemaker placement. The patient's creatinine on presentation was around 5.6 mg/dL and remains around this level today. The patient's creatinine about 4 months ago in the hospital was around 3.2 mg/dL and on October 31, 2016 at internal medicine clinic the patient's creatinine was around 3.5 mg/dL. Patient denies any problems with decreased urination or straining to urinate. ROS: Head - positive headaches ENT - denies sore throat Lymphatics - denies lymphadenopathy Hematology -he had some nosebleeds a few days ago Heart -positive chest pain Lungs - positive shortness of breath Abdomen - denies abdominal pain Musculoskeletal -positive arthritis Skin - denies rash Neurology - denies stroke General -positive fever PE: General: in no acute distress Eyes: Pupils are round and reactive, conjunctivae are clear ENT: Nose is clear, O/P is benign Neck: Supple, no thyromegaly Lymphatics: No cervical, supraclavicular or axillary adenopathy Heart: Regular rate and rhythm, no edema Lungs: Clear to auscultation anteriorly, chest expansion symmetric Abdomen: Soft, normoactive bowel sounds, no hepatomegaly Musculoskeletal: No joint erythema or effusions or joint asymmetry Skin: Normal turgor, normal hydration, no rash Neuro/Psych: Alert and cooperative with fair insight Home Medications Medication Instructions Recorded Confirmed Type Aspirin EC Tab 81 mg PO DAILY 07/21/16 12/04/16 History Cetirizine HCl [Cetirizine Tab] 10 mg PO DAILY 07/21/16 12/04/16 History Cholecalciferol (Vitamin D3) 5,000 unit PO DAILY 07/21/16 08/15/16 History [Vitamin D3] Cyanocobalamin Tab [Vitamin B12 500 mcg PO DAILY 07/21/16 12/04/16 History Tab] Fluticasone 50 Mcg Nasal [place] 1 spray BOTH NARES DAILY 07/21/16 12/04/16 History [Flonase Nasal [place]] Sertraline [Zoloft] 50 mg PO DAILY 07/21/16 12/04/16 History amLODIPine [Norvasc] 10 mg PO DAILY 07/21/16 12/04/16 History Carvedilol [Coreg] 3.125 mg PO BID #60 tablet 07/24/16 12/04/16 Rx Insulin Glargine,Hum.rec.anlog 10 unit SUBCUT BEDTIME 08/08/16 12/04/16 History [Lantus SoloStar] Latanoprost [Latanoprost 0.005 % 1 drop BOTH EYES BEDTIME 08/08/16 12/04/16 History Oph Soln] Minoxidil 2.5 mg PO BID 08/08/16 12/04/16 History Furosemide Tab [Lasix Tab] 80 mg PO BID DIURETIC #60 tablet 08/12/16 12/04/16 Rx Levothyroxine Tab [Synthroid Tab] 50 mcg PO DAILY@0700 #30 tablet 08/12/1612/04 Rx metOLazone [Metolazone] 5 mg PO BID 12/04/16 12/04/16 History methylPREDNISolone DOSEPAK [Medrol 4 mg PO DIRECTED 12/04/16 12/04/16 History Dosepak] Allergies Allergy/AdvReac Type Severity Reaction Status Date / Time Penicillins Allergy ANAPHYLAXIS Verified 08/15/16 04:44 Medical,Surgical,& Family Hx - Medical History Cardio: History of: CHF, Hypertension (30 years with echocardiogram showing LVH with normal LVEF) Psychological: History of: Depression Endocrine: History of: Diabetes Mellitus (IDDM) (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), Dyslipidemia, Thyroid Disorder Rheumatology: History of;: Gout Respiratory: History of: Pneumonia Renal: History of: Renal Failure Hematology: History of: Anemia - Surgical History HEENT Surgeries: Surgical HX of: Eye Surgery (Bilateral cataract removal) Abdominal Surgeries: Patient denies: Abdominal Surgery - Family History Family History: Reports;: Family Diabetes (Father), Family Heart Disease ([place]- Mother and Father) - Social History Smoking Status: Never smoker Frequency of Alcohol Use: None Type of Drug Use: None Exam - Vital Signs Vital signs: Period Temp Pulse Resp BP Sys/Schmidt Pulse Ox Last 24 Hr 98.3 F-98.7 F 29-73 9-24 118-230/42-74 94-100 Results - Labs CBC & BMP: 12/04/16 17:36 12/05/16 05:24 Assessment and Plan (1) Acute renal failure superimposed on stage 4 chronic kidney disease Status: Acute Assessment and plan: This patient's baseline creatinine about a month ago was around 3.5 mg/dL it is now increased around 5.6 mg/dL. I suspect he has some acute kidney injury related to his decreased heart rate. Will monitor for improvement with the placement of his pacemaker. I do not feel any further investigation is needed at this time. Current Visit: Yes (2) Heart block AV third degree Status: Acute Assessment and plan: Patient is status post pacemaker placement now. Current Visit: Yes (3) Diabetes Status: Chronic Current Visit: Yes (4) Anemia Status: Acute Assessment and plan: Patient's hematocrit around 28% Current Visit: No (5) Hypertension Status: Chronic Current Visit: No
[2016-12-05] MEDS ORDERED: hydrALAZINE 25 MG TABLET PO PRN (17:36)
[2016-12-05] MEDS: MONTELUKAST 10 MG TABLET PO SCH (22:11)
[2016-12-05] MEDS: SIMVASTATIN 20 MG TABLET PO SCH (22:11)
[2016-12-05] MEDS: LATANOPROST 0.005% OPH SOLN 2.5 ML BOTTLE BOTH EYES SCH (22:12)
[2016-12-05] MEDS: NITROGLYCERIN DRIP 50 MG/250 ML BOTTLE IV SCH (23:04)
[2016-12-06] MEDS: NITROGLYCERIN DRIP 50 MG/250 ML BOTTLE IV SCH ×2 (03:21→20:22)
[2016-12-06 04:55] LABS: Basophils # 0.1 10*3/uL (0.0-0.2); Basophils % 0.5 % (0.0-0.8); Eosinophils # 0.4 10*3/uL (0.0-0.87); Eosinophils % 3.5 % (0.00-10.9); Hematocrit 25.8 VOL% (42.0-52.0); Hemoglobin 8.1 GM/DL (14.0-18.0); Immature Granulocytes % 0.5 %; Immature Granulocytes Absolute 0.05 #; Lymphocytes # 0.7 10*3/uL (1.4-4.0); Lymphocytes % 6.6 % (21.2-54.2); Mean Corpuscular HGB Conc 31.4 GM/DL (32-36); Mean Corpuscular Hemoglobin 26 PG (27-34); Mean Corpuscular Volume 83.8 FL (87-102); Mean Platelet Volume 11.4 FL (9.6-12.0); Monocytes # 0.8 10*3/uL (0.11-0.8); Monocytes % 7.6 % (1.7-12.7); Neutrophils # 8.5 10*3/uL (1.4-7.4); Neutrophils % 81.3 % (38.7-73.9); Platelet Count 222 T/CUMM (130-400); Red Blood Count 3.08 MC/CUMM (3.8-5.5); Red Cell Distribution Width 14.6 % (9.3-17.3); White Blood Count 10.5 T/CUMM (4-12)
[2016-12-06 05:23] LABS: Calcium 7.4 MG/DL (8.5-10.1); Osmolality,Calculated 324.4 MOS/KG (273-304); Potassium 3.7 MMOL/L (3.5-5.1)
[2016-12-06] MEDS: LEVOTHYROXINE 50 MCG TABLET PO SCH (06:24)
--- NOTE | 2016-12-06 08:40 | Nephrology Progress Note ---
Nephrology - PN: Subj Interval history: Patient feels better this morning And since having his pacemaker placed. He denies shortness of breath. Review of systems GI denies nausea or vomiting Physical exam general patient is in no acute distress, he has no pitting edema Assessment/plan 1. Acute renal failure-this patient's creatinine is improved to 4.9 mg/dL from 5.6 mg/dL yesterday, his previous baseline creatinine was around 3.5 mg/dL 2. Bradycardia-this is resolved status post pacemaker 3. Diabetes mellitus 4. Anemia Exam (PN)-Nephrology - Vital Signs Vital signs: Period Temp Pulse Resp BP Sys/Schmidt Pulse Ox Last 24 Hr 98.2 F-98.6 F 31-106 9-25 136-203/55-113 90-100 - Lab 12/06/16 04:24 12/06/16 04:24 Most recent lab results Calcium 7.4 MG/DL (8.5-10.1) L 12/06/16 04:24 Magnesium 3.0 MG/DL (1.8-2.4) H 12/06/16 04:24 Assessment and Plan (1) Acute renal failure superimposed on stage 4 chronic kidney disease Status: Acute Assessment and plan: This patient's baseline creatinine about a month ago was around 3.5 mg/dL it is now increased around 5.6 mg/dL. I suspect he has some acute kidney injury related to his decreased heart rate. Will monitor for improvement with the placement of his pacemaker. I do not feel any further investigation is needed at this time. Current Visit: Yes (2) Heart block AV third degree Status: Resolved Assessment and plan: Patient is status post pacemaker placement now. Current Visit: Yes (3) Diabetes Status: Chronic Current Visit: Yes (4) Anemia Status: Acute Assessment and plan: Patient's hematocrit around 28% Current Visit: No (5) Hypertension Status: Chronic Current Visit: No
[2016-12-06] MEDS: ASPIRIN EC 81 MG TABLET PO SCH (09:01)
[2016-12-06] MEDS: MINOXIDIL 2.5 MG TABLET PO SCH ×2 (09:01→21:39)
[2016-12-06] MEDS: INSULIN GLARGINE 100 UNIT/ML SUBCUT SCH ×2 (09:02→21:39)
[2016-12-06] MEDS: CETIRIZINE 10 MG TABLET PO SCH (09:02)
[2016-12-06] MEDS: SERTRALINE 50 MG TABLET PO SCH (09:02)
[2016-12-06] MEDS: INSULIN REGULAR 100 UNIT/ML SUBCUT SCH ×4 (09:03→21:39)
[2016-12-06] MEDS: CHOLECALCIFEROL 1,000 UNIT TABLET PO SCH (09:04)
[2016-12-06] MEDS: FLUTICASONE 50 MCG NASAL SPRAY 16 GM BOTTLE BOTH NARES SCH (09:04)
--- NOTE | 2016-12-06 09:09 | Cardiology Progress Note ---
Rupert Mix Rachel, RN, am scribing for, and in the presence of, Kofi Boggs MD 09:08. Assessment and Plan (1) Heart block AV third degree Status: Resolved Assessment and plan: Status post dual-chamber pacemaker yesterday. Patient is currently in sinus rhythm without any overt arrhythmias or ectopy noted. Current Visit: Yes (2) Uncontrolled hypertension Status: Chronic Assessment and plan: Patient remains on nitroglycerin drip. Nurse reports that this was titrated up due to upward trend of blood pressure. After reviewing vital signs it appears that systolic blood pressure got as high as 160. Nitroglycerin is currently using 80 g. Will adjust blood pressure medications and wean off nitroglycerin. Current Visit: No (3) Diabetes Status: Chronic Assessment and plan: This is clinically stable. Continue current plan of care with insulin sliding scale Current Visit: Yes (4) Chronic kidney disease, stage III (moderate) Status: Acute Assessment and plan: Creatinine has improved to 4.9 this morning. Nephrology is following. Current Visit: Yes (5) Elevated troponin Status: Acute Assessment and plan: Trivial troponin noted. EKG does not reveal any acute findings. This could be secondary to patient's heart failure and/or current elevated creatinine. BNP of 2938 noted. Creatinine of 4.9 noted. Current Visit: No (6) Medical non-compliance Status: Acute Assessment and plan: Counseled patient on importance of medication compliance. Current Visit: No (7) Insulin dependent diabetes mellitus Status: Chronic Current Visit: No (8) Acute CHF Status: Acute Assessment and plan: BNP of 2938 noted. Current Visit: No (9) Anemia Status: Acute Assessment and plan: H&H 8 and 25. No overt bleeding noted. Current Visit: No Cardiology - PN: Subj Interval history: Patient was seen in the CCU. Patient is status post dual-chamber pacemaker yesterday. He is doing well postoperatively without complications. He is currently lying in bed in no acute distress. Not requiring any oxygen. He did well overnight and is without any new complaints. He denies chest discomfort, heaviness and tightness. He also denies palpitations and shortness of breath. Dressing to left upper chest clean dry and intact. Left arm immobilizer noted. Creatinine this morning is down to 4.9. Nephrology is following. H&H is 8.1 and 25.8. Potassium is 3.7 and magnesium 3.0. Vital signs are stable with systolic blood pressure of 140 noted. Patient is currently sinus rhythm with heart rates ranging from 90-100 without any overt arrhythmias or ectopy noted. Patient remains on nitroglycerin drip. Nurse reports that this was titrated up due to upward trend of blood pressure. After reviewing vital signs it appears that systolic blood pressure got as high as 160. Nitroglycerin is currently using 80 g. Will adjust blood pressure medications as needed. Echocardiogram yesterday revealed normal left ventricle size with moderate concentric hypertrophy with normal systolic function. Estimated left ventricle ejection fraction 55%. Mild mitral regurgitation and mild aortic valve sclerosis noted. Active Medications Aspirin () 81 mg PO DAILY [facility] Last Admin: 12/05/16 12:18 Dose: 81 mg Cetirizine HCl (Zyrtec Tab) 10 mg PO DAILY [facility] Last Admin: 12/05/16 12:20 Dose: 10 mg Cholecalciferol (Vitamin D3) 5,000 unit PO DAILY [facility] Last Admin: 12/05/16 12:19 Dose: 5,000 unit Dextrose/Water (D50) 25 gm IV PRN PRN PRN Reason: Hypoglycemia with IV access Fluticasone Propionate (Flonase) 1 spray BOTH NARES DAILY [facility] Last Admin: 12/05/16 12:17 Dose: 1 spray Glucagon () 1 mg IM PRN PRN PRN Reason: Hypoglycemia w/o IV access Hydralazine HCl (Apresoline Tab) 25 mg PO Q4H PRN PRN Reason: Hypertension Last Admin: 12/05/16 18:55 Dose: 25 mg Nitroglycerin/Dextrose () 50 mg in 250 mls @ 6 mls/hr IV TITRATE RUBINA; 20 MCG/ MIN PRN Reason: Protocol Last Admin: 12/06/16 03:21 Dose: 83.33 mcg/min, 25 mls/hr Insulin Glargine (Lantus) 10 unit SUBCUT BID [facility] Last Admin: 12/05/16 22:11 Dose: 10 unit Insulin Human Regular (Humulin R) 0 unit SUBCUT ACHS RUBINA PRN Reason: Protocol Last Admin: 12/05/16 22:10 Dose: 2 unit Latanoprost (Xalatan) 1 drop BOTH EYES BEDTIME [facility] Last Admin: 12/05/16 22:12 Dose: 1 drop Levothyroxine Sodium (Synthroid Tab) 50 mcg PO DAILY@0700 [facility] Last Admin: 12/06/16 06:24 Dose: 50 mcg Minoxidil (Loniten) 2.5 mg PO BID [facility] Last Admin: 12/05/16 22:14 Dose: 2.5 mg Montelukast Sodium (Singulair Tab) 10 mg PO BEDTIME [facility] Last Admin: 12/05/16 22:11 Dose: 10 mg Nifedipine (Procardia Xl) 30 mg PO BEDTIME [facility] Last Admin: 12/05/16 22:11 Dose: 30 mg Ondansetron HCl (Zofran Inj) 4 mg IV Q4H PRN PRN Reason: Nausea/Vomiting Oxycodone/Acetaminophen (Percocet 5-325) 1 tablet PO Q4H PRN PRN Reason: Pain Moderate (4-7) Sertraline HCl (Zoloft) 50 mg PO DAILY [facility] Last Admin: 12/05/16 12:20 Dose: 50 mg Simvastatin (Zocor) 20 mg PO BEDTIME [facility] Last Admin: 12/05/16 22:11 Dose: 20 mg Exam (Progress Note) - Constitutional Vitals: Period Temp Pulse Resp BP Sys/Schmidt Pulse Ox Last 24 Hr 98.2 F-98.6 F 31-106 9-25 136-203/53-113 90-100 Exam: General appearance: no acute distress, over weight - Head Head exam: Present: normal inspection, normocephalic, atraumatic - Respiratory Respiratory exam: Present: clear to auscultation bilaterally. Absent: accessory muscle use, chest wall tenderness, rales, rhonchi, stridor, wheezes - Cardiovascular Cardiovascular exam: Present: Regular rate and rhythm. Absent: carotid bruit, gallop, rubs, systolic murmur. Pressure dressing to left upper chest clean dry and intact. Pacer pocket intact. Left arm immobilizer noted. - GI/Abdominal GI/Abdominal exam: Present: normal bowel sounds, soft. Absent: ascites, distended, firm, mass, tenderness - Extremities Exam Extremities exam: Present: normal inspection, normal capillary refill, other ( Normal lower extremity pulses). Absent: calf tenderness, edema - Neurological Exam Neurological exam: Present: alert, oriented X3, normal gait - Psychiatric Psychiatric exam: Present: normal affect, normal mood. Absent: agitated, anxious, depressed - Skin Skin exam: Present: normal color, warm. Absent: cyanosis, dry Result/EKG - Labs CBC & BMP: 12/06/16 04:24 12/06/16 04:24 Lab Results: I have reviewed the past 24 hour labs Labs: Laboratory Results - last 24 hr 12/05/16 12/05/16 12/05/16 08:08 08:08 08:09 WBC RBC Hgb Hct MCV MCH MCHC RDW Plt Count MPV Neut % (Auto) Lymph % (Auto) Charles % (Auto) Eos % (Auto) Baso % (Auto) Neut # (Auto) Lymph # (Auto) Charles # (Auto) Eos # (Auto) Baso # (Auto) Immature Gran % Nucleated RBC % Immature Gran # Nucleated RBCs # Sodium Potassium Chloride Carbon Dioxide Anion Gap BUN Creatinine GFR Calculation BUN/Creatinine Ratio Glucose POC Glucose Calculated Osmolality Calcium Magnesium 3.2 H Total Creatine Kinase 328 H CK-MB (CK-2) 3.1 Troponin I 0.108 H Free T4 1.01 TSH 3rd Generation 2.780 12/05/16 12/05/16 12/05/16 08:16 12:29 16:10 WBC RBC Hgb Hct MCV MCH MCHC RDW Plt Count MPV Neut % (Auto) Lymph % (Auto) Charles % (Auto) Eos % (Auto) Baso % (Auto) Neut # (Auto) Lymph # (Auto) Charles # (Auto) Eos # (Auto) Baso # (Auto) Immature Gran % Nucleated RBC % Immature Gran # Nucleated RBCs # Sodium Potassium Chloride Carbon Dioxide Anion Gap BUN Creatinine GFR Calculation BUN/Creatinine Ratio Glucose POC Glucose 115 H 101 168 H Calculated Osmolality Calcium Magnesium Total Creatine Kinase CK-MB (CK-2) Troponin I Free T4 TSH 3rd Generation 12/05/16 12/06/16 12/06/16 21:45 04:24 04:24 WBC 10.5 D RBC 3.08 L Hgb 8.1 L Hct 25.8 L MCV 83.8 L MCH 26 L MCHC 31.4 L RDW 14.6 Plt Count 222 MPV 11.4 Neut % (Auto) 81.3 H Lymph % (Auto) 6.6 L Charles % (Auto) 7.6 Eos % (Auto) 3.5 Baso % (Auto) 0.5 Neut # (Auto) 8.5 H Lymph # (Auto) 0.7 L Charles # (Auto) 0.8 Eos # (Auto) 0.4 Baso # (Auto) 0.1 Immature Gran % 0.5 Nucleated RBC % 0.0 Immature Gran # 0.05 Nucleated RBCs # 0.00 Sodium 147 H Potassium 3.7 Chloride 108 H Carbon Dioxide 25 Anion Gap 17.7 H BUN 98 H Creatinine 4.90 H GFR Calculation 17 BUN/Creatinine Ratio 20.00 Glucose 138 H POC Glucose 185 H Calculated Osmolality 324.4 H Calcium 7.4 L Magnesium 3.0 H Total Creatine Kinase CK-MB (CK-2) Troponin I Free T4 TSH 3rd Generation - EKG EKG results: interpreted by me, sinus rhythm Quality Measures - VTE Contraindication to Pharmacological VTE Prophylaxis: High Risk of Bleeding IAmbrose Michael, MD, personally performed the services described in this documentation, ascribed by Alla Emery RN in my presence, and it is both accurate and complete [id number] .
[2016-12-06] MEDS: CARVEDILOL 12.5 MG TABLET PO SCH ×2 (09:44→21:39)
--- NOTE | 2016-12-06 10:17 | XRay Report ---
History: Pacemaker lead placement Date: 12/06/2016 Study: Chest x-ray AP portable Comparison exam: Chest x-ray 12/05/2016 The cardiomediastinal silhouette is stable. There is no pneumothorax. The pulmonary vasculature is not engorged. The lungs are clear for shallow breath. There is no gross pleural effusion. The left subclavian dual-lead transvenous pacemaker is stable in generally satisfactory position. Osseous structures are unchanged. Impression: No adverse interval change from the previous day PROCEDURE INTERPRETED AT [facility] Final Report Signed by: Dr. April Alfaro
--- NOTE | 2016-12-06 12:00 | Electrophysiology Progress Not ---
Assessment and Plan (1) Heart block AV third degree Status: Resolved Assessment and plan: 56-year-old AA male, with symptomatic bradycardia, complete heart block, severe CKD, hypertension, medication noncompliance, diabetes, gout. 12/05: DDD PM implant -Keep PM implant site dry and wear the sling all time for 1 week -FU with EP in 1 week for wound/PM check Current Visit: Yes (2) Congestive heart failure Status: Acute Current Visit: No (3) Renal failure Status: Acute Current Visit: No (4) Elevated troponin Status: Acute Current Visit: No (5) Medical non-compliance Status: Acute Current Visit: No (6) Uncontrolled hypertension Status: Chronic Current Visit: No (7) Anemia Status: Acute Current Visit: No (8) Diabetes Status: Chronic Current Visit: Yes Electrophysiology Subjective Interval history: Removed the pressure dressing. No pacemaker hematoma. Device interrogation confirmed normal function, normal lead positions, no pneumothorax. Blood pressure still elevated, still on NTG drip. Exam - Constitutional Vitals: Period Temp Pulse Resp BP Sys/Schmidt Pulse Ox Last 24 Hr 98.2 F-98.6 F 75-106 9-25 136-203/64-113 90-100 General appearance: over weight - Head Head exam: Present: normal inspection - Eye Eye exam: Absent: conjunctival injection Pupils: Absent: dilated - ENT ENT exam: Present: normal external ear exam - Neck Neck exam: Present: normal inspection - Respiratory Respiratory exam: Present: clear to auscultation bilaterally - Cardiovascular Cardiovascular exam: Present: regular rate and rhythm, systolic murmur - GI/Abdominal GI/Abdominal exam: Present: normal bowel sounds - Extremities Exam Extremities exam: Present: normal inspection, normal capillary refill. Absent: edema - Back Exam Back exam: Present: normal inspection - Neurological Exam Neurological exam: Present: alert, oriented X3 - Psychiatric Psychiatric exam: Present: normal affect, normal mood - Skin Skin exam: Present: normal color, warm. Absent: cyanosis Results - Labs CBC & BMP: 12/06/16 04:24 12/06/16 04:24 Lab Results: I have reviewed the past 24 hour labs Quality Measures - VTE Contraindication to Pharmacological VTE Prophylaxis: High Risk of Bleeding Specialty Discharge - Follow Up or Referrals - Speciality Discharge Instructions Cardiology Instructions: Follow up with EP, dr. Loewry in 1 week
[2016-12-06] MEDS: MONTELUKAST 10 MG TABLET PO SCH (21:39)
[2016-12-06] MEDS: LATANOPROST 0.005% OPH SOLN 2.5 ML BOTTLE BOTH EYES SCH (21:39)
[2016-12-06] MEDS: SIMVASTATIN 20 MG TABLET PO SCH (21:39)
[2016-12-07] MEDS: LEVOTHYROXINE 50 MCG TABLET PO SCH (06:18)
--- NOTE | 2016-12-07 06:59 | Nephrology Progress Note ---
Nephrology - PN: Subj Interval history: Patient denies shortness of breath. Review of systems GI denies nausea or vomiting, general the patient states she is getting up and moving around without difficulty, he states he is making urine well Physical exam general the patient is in no acute distress Assessment/plan 1. Acute renal failure-this patient's creatinine has been improving, will check a BMP in the morning 2. Bradycardia-patient is status post pacemaker placement, his heart rate today is from 80s 3. Diabetes mellitus 4. Anemia-hematocrit was around 26% on a couple of days ago Exam (PN)-Nephrology - Vital Signs Vital signs: Period Temp Pulse Resp BP Sys/Schmidt Pulse Ox Last 24 Hr 97.8 F-98.9 F 73-105 12-27 108-173/49-93 95-100 - Lab 12/06/16 04:24 12/06/16 04:24 Most recent lab results Calcium 7.4 MG/DL (8.5-10.1) L 12/06/16 04:24 Magnesium 3.0 MG/DL (1.8-2.4) H 12/06/16 04:24 Assessment and Plan (1) Acute renal failure superimposed on stage 4 chronic kidney disease Status: Acute Assessment and plan: This patient's baseline creatinine about a month ago was around 3.5 mg/dL it is now increased around 5.6 mg/dL. I suspect he has some acute kidney injury related to his decreased heart rate. Will monitor for improvement with the placement of his pacemaker. I do not feel any further investigation is needed at this time. Current Visit: Yes (2) Heart block AV third degree Status: Resolved Assessment and plan: Patient is status post pacemaker placement now. Current Visit: Yes (3) Diabetes Status: Chronic Current Visit: Yes (4) Anemia Status: Acute Assessment and plan: Patient's hematocrit around 28% Current Visit: No (5) Hypertension Status: Chronic Current Visit: No
[2016-12-07 08:10] LABS: Basophils % 0.4 % (0.0-0.8); Eosinophils # 0.3 10*3/uL (0.0-0.87); Eosinophils % 4.1 % (0.00-10.9); Hematocrit 25.7 VOL% (42.0-52.0); Hemoglobin 8.2 GM/DL (14.0-18.0); Immature Granulocytes % 0.4 %; Immature Granulocytes Absolute 0.03 #; Lymphocytes % 12.8 % (21.2-54.2); Mean Corpuscular HGB Conc 31.9 GM/DL (32-36); Mean Corpuscular Hemoglobin 27 PG (27-34); Mean Corpuscular Volume 83.7 FL (87-102); Mean Platelet Volume 10.7 FL (9.6-12.0); Monocytes # 0.7 10*3/uL (0.11-0.8); Monocytes % 8.2 % (1.7-12.7); Neutrophils % 74.1 % (38.7-73.9); Platelet Count 219 T/CUMM (130-400); Red Blood Count 3.07 MC/CUMM (3.8-5.5); Red Cell Distribution Width 14.9 % (9.3-17.3)
[2016-12-07] MEDS: INSULIN REGULAR 100 UNIT/ML SUBCUT SCH ×4 (08:14→21:15)
[2016-12-07] MEDS: INSULIN GLARGINE 100 UNIT/ML SUBCUT SCH ×2 (08:14→21:15)
[2016-12-07] MEDS: CHOLECALCIFEROL 1,000 UNIT TABLET PO SCH (08:15)
[2016-12-07] MEDS: FLUTICASONE 50 MCG NASAL SPRAY 16 GM BOTTLE BOTH NARES SCH (08:15)
[2016-12-07] MEDS: SERTRALINE 50 MG TABLET PO SCH (08:15)
[2016-12-07] MEDS: CARVEDILOL 12.5 MG TABLET PO SCH ×2 (08:15→21:23)
[2016-12-07] MEDS: ASPIRIN EC 81 MG TABLET PO SCH (08:15)
[2016-12-07] MEDS: MINOXIDIL 2.5 MG TABLET PO SCH (08:15)
[2016-12-07] MEDS: CETIRIZINE 10 MG TABLET PO SCH (08:15)
[2016-12-07 08:45] LABS: Calcium 7.3 MG/DL (8.5-10.1); Osmolality,Calculated 321.4 MOS/KG (273-304); Potassium 3.8 MMOL/L (3.5-5.1)
--- NOTE | 2016-12-07 09:49 | Electrophysiology Progress Not ---
Assessment and Plan (1) Heart block AV third degree Status: Resolved Assessment and plan: 56-year-old AA male, with symptomatic bradycardia, complete heart block, severe CKD, hypertension, medication noncompliance, diabetes, gout. 12/05: DDD PM implant -Keep PM implant site dry and wear the sling all time for 1 week -FU with EP in 1 week for wound/PM check -OK to resume DVT prophylaxis -I will sign off, please call with any questions Current Visit: Yes (2) Congestive heart failure Status: Acute Current Visit: No (3) Renal failure Status: Acute Current Visit: No (4) Elevated troponin Status: Acute Current Visit: No (5) Medical non-compliance Status: Acute Current Visit: No (6) Uncontrolled hypertension Status: Chronic Current Visit: No (7) Anemia Status: Acute Current Visit: No (8) Diabetes Status: Chronic Current Visit: Yes Electrophysiology Subjective Interval history: He is feeling fine. The blood pressure is better controlled. Normal dual- chamber pacemaker function, with ventricular pacing on telemetry. No pacemaker hematoma. Exam - Constitutional Vitals: Period Temp Pulse Resp BP Sys/Schmidt Pulse Ox Last 24 Hr 97.8 F-98.9 F 73-96 12-27 108-155/49-93 95-100 General appearance: over weight - Head Head exam: Present: normal inspection - Eye Eye exam: Absent: conjunctival injection Pupils: Absent: dilated - ENT ENT exam: Present: normal external ear exam - Neck Neck exam: Present: normal inspection - Respiratory Respiratory exam: Present: clear to auscultation bilaterally - Cardiovascular Cardiovascular exam: Present: regular rate and rhythm, systolic murmur - GI/Abdominal GI/Abdominal exam: Present: normal bowel sounds - Extremities Exam Extremities exam: Present: normal inspection, normal capillary refill. Absent: edema - Back Exam Back exam: Present: normal inspection - Neurological Exam Neurological exam: Present: alert, oriented X3 - Psychiatric Psychiatric exam: Present: normal affect, normal mood - Skin Skin exam: Present: normal color, warm. Absent: cyanosis Results - Labs CBC & BMP: 12/07/16 08:05 12/07/16 08:05 Lab Results: I have reviewed the past 24 hour labs Quality Measures - VTE Contraindication to Pharmacological VTE Prophylaxis: High Risk of Bleeding Specialty Discharge - Follow Up or Referrals Follow up with: Trevor Lowery MD [Physician] - 1 Week (Point with Dr. Lowery 1 week post discharge. )
--- NOTE | 2016-12-07 10:22 | Cardiology Progress Note ---
Rupert Mix Rachel, RN, am scribing for, and in the presence of, Kofi Boggs MD 10:22. Assessment and Plan (1) Heart block AV third degree Status: Resolved Assessment and plan: Status post dual-chamber pacemaker. Patient is currently in pacer rhythm without any overt arrhythmias or ectopy noted. Current Visit: Yes (2) Diabetes Status: Chronic Assessment and plan: This is clinically stable. Continue current plan of care with insulin sliding scale Current Visit: Yes (3) Chronic kidney disease, stage III (moderate) Status: Acute Assessment and plan: BMP is pending this morning. Nephrology is following. Current Visit: Yes (4) Medical non-compliance Status: Acute Assessment and plan: Counseled patient on importance of medication compliance. Current Visit: No (5) Uncontrolled hypertension Status: Chronic Assessment and plan: Blood pressure is much better controlled today after initiation of Coreg yesterday. Systolic blood pressure of 139 is noted. Nitroglycerin has been weaned off. Continue current plan of care. Current Visit: No (6) Insulin dependent diabetes mellitus Status: Chronic Current Visit: No (7) Acute CHF Status: Acute Assessment and plan: Clinically he is much better since getting his blood pressure controlled and his heart rate normalized with pacemaker. I'm going to transfer him to telemetry. Hopefully we can get him ready for discharge in the next day or so. Current Visit: No (8) Anemia Status: Acute Assessment and plan: CBC is pending. No overt bleeding noted. Current Visit: No Cardiology - PN: Subj Interval history: Patient was seen in the CCU. Patient is status post dual-chamber pacemaker. He is doing well postoperatively without complications. He is currently lying in bed in no acute distress. Not requiring any oxygen. He did well overnight and is without any new complaints. He denies chest discomfort, heaviness and tightness. He also denies palpitations and shortness of breath. Dressing to left upper chest clean dry and intact. Left arm immobilizer noted. BMP this morning is pending. We will continue to monitor creatinine closely. Nephrology is following. Blood pressure is much better controlled today after adding Coreg yesterday. Nitro drip has been titrated off. Systolic blood pressure 139 noted. He is currently in pacer rhythm with heart rates in the 80s without any overt arrhythmias or ectopy noted. BMP and CBC are pending this morning. If creatinine and H&H is stable this morning and if okay with nephrology patient can possibly be discharged home later today. Dr. Lowery saw patient this morning and would like a follow-up appointment with him in 1 week post discharge. Recent echocardiogram revealed normal left ventricle size with moderate concentric hypertrophy with normal systolic function. Estimated left ventricle ejection fraction 55%. Mild mitral regurgitation and mild aortic valve sclerosis noted. Active Medications Aspirin () 81 mg PO DAILY [facility] Last Admin: 12/06/16 09:01 Dose: 81 mg Carvedilol (Coreg) 12.5 mg PO BID [facility] Last Admin: 12/06/16 21:39 Dose: 12.5 mg Cetirizine HCl (Zyrtec Tab) 10 mg PO DAILY [facility] Last Admin: 12/06/16 09:02 Dose: 10 mg Cholecalciferol (Vitamin D3) 5,000 unit PO DAILY [facility] Last Admin: 12/06/16 09:04 Dose: 5,000 unit Dextrose/Water (D50) 25 gm IV PRN PRN PRN Reason: Hypoglycemia with IV access Fluticasone Propionate (Flonase) 1 spray BOTH NARES DAILY [facility] Last Admin: 12/06/16 09:04 Dose: 1 spray Glucagon () 1 mg IM PRN PRN PRN Reason: Hypoglycemia w/o IV access Hydralazine HCl (Apresoline Tab) 25 mg PO Q4H PRN PRN Reason: Hypertension Last Admin: 12/05/16 18:55 Dose: 25 mg Nitroglycerin/Dextrose () 50 mg in 250 mls @ 6 mls/hr IV TITRATE RUBINA; 20 MCG/ MIN PRN Reason: Protocol Last Admin: 12/06/16 20:22 Dose: Not Given Insulin Glargine (Lantus) 10 unit SUBCUT BID [facility] Last Admin: 12/06/16 21:39 Dose: 10 unit Insulin Human Regular (Humulin R) 0 unit SUBCUT ACHS RUBINA PRN Reason: Protocol Last Admin: 12/06/16 21:39 Dose: 2 unit Latanoprost (Xalatan) 1 drop BOTH EYES BEDTIME [facility] Last Admin: 12/06/16 21:39 Dose: 1 drop Levothyroxine Sodium (Synthroid Tab) 50 mcg PO DAILY@0700 [facility] Last Admin: 12/07/16 06:18 Dose: 50 mcg Minoxidil (Loniten) 2.5 mg PO BID [facility] Last Admin: 12/06/16 21:39 Dose: 2.5 mg Montelukast Sodium (Singulair Tab) 10 mg PO BEDTIME [facility] Last Admin: 12/06/16 21:39 Dose: 10 mg Nifedipine (Procardia Xl) 30 mg PO BID [facility] Last Admin: 12/06/16 21:39 Dose: 30 mg Ondansetron HCl (Zofran Inj) 4 mg IV Q4H PRN PRN Reason: Nausea/Vomiting Oxycodone/Acetaminophen (Percocet 5-325) 1 tablet PO Q4H PRN PRN Reason: Pain Moderate (4-7) Sertraline HCl (Zoloft) 50 mg PO DAILY [facility] Last Admin: 12/06/16 09:02 Dose: 50 mg Simvastatin (Zocor) 20 mg PO BEDTIME [facility] Last Admin: 12/06/16 21:39 Dose: 20 mg Exam (Progress Note) - Constitutional Vitals: Period Temp Pulse Resp BP Sys/Schmidt Pulse Ox Last 24 Hr 97.8 F-98.9 F 73-105 12-27 108-173/49-93 95-100 Exam: General appearance: no acute distress, over weight - Head Head exam: Present: normal inspection, normocephalic, atraumatic - Respiratory Respiratory exam: Present: clear to auscultation bilaterally. Absent: accessory muscle use, chest wall tenderness, rales, rhonchi, stridor, wheezes - Cardiovascular Cardiovascular exam: Present: Regular rate and rhythm. Absent: carotid bruit, gallop, rubs, systolic murmur. Dressing to left upper chest clean dry and intact. Pacer pocket intact. Left arm immobilizer noted. - GI/Abdominal GI/Abdominal exam: Present: normal bowel sounds, soft. Absent: ascites, distended, firm, mass, tenderness - Extremities Exam Extremities exam: Present: normal inspection, normal capillary refill, other ( Normal lower extremity pulses). Absent: calf tenderness, edema - Neurological Exam Neurological exam: Present: alert, oriented X3, normal gait - Psychiatric Psychiatric exam: Present: normal affect, normal mood. Absent: agitated, anxious, depressed - Skin Skin exam: Present: normal color, warm. Absent: cyanosis, dry Result/EKG - Labs CBC & BMP: 12/07/16 08:05 12/07/16 08:05 Lab Results: I have reviewed the past 24 hour labs Labs: Laboratory Results - last 24 hr 12/06/16 12/06/16 12/06/16 07:30 11:50 16:12 POC Glucose 153 H 196 H 134 H 12/06/16 20:34 POC Glucose 183 H Quality Measures - VTE Contraindication to Pharmacological VTE Prophylaxis: High Risk of Bleeding Specialty Discharge - Follow Up or Referrals Follow up with: Trevor Lowery MD [Physician] - 1 Week (Point with Dr. Lowery 1 week post discharge. ) I, Kofi Boggs MD, personally performed the services described in this documentation, ascribed by Alla Emery, RN in my presence, and it is both accurate and complete .
[2016-12-07] MEDS: SIMVASTATIN 20 MG TABLET PO SCH (21:15)
[2016-12-07] MEDS: MONTELUKAST 10 MG TABLET PO SCH (21:15)
[2016-12-07] MEDS: LATANOPROST 0.005% OPH SOLN 2.5 ML BOTTLE BOTH EYES SCH (22:06)
[2016-12-08 05:45] LABS: Basophils # 0.1 10*3/uL (0.0-0.2); Basophils % 0.9 % (0.0-0.8); Eosinophils # 0.4 10*3/uL (0.0-0.87); Eosinophils % 4.4 % (0.00-10.9); Hematocrit 26.4 VOL% (42.0-52.0); Hemoglobin 8.6 GM/DL (14.0-18.0); Immature Granulocytes % 0.3 %; Immature Granulocytes Absolute 0.03 #; Lymphocytes # 1.1 10*3/uL (1.4-4.0); Lymphocytes % 12.7 % (21.2-54.2); Mean Corpuscular HGB Conc 32.6 GM/DL (32-36); Mean Corpuscular Hemoglobin 27 PG (27-34); Mean Corpuscular Volume 81.7 FL (87-102); Mean Platelet Volume 11.1 FL (9.6-12.0); Monocytes # 0.8 10*3/uL (0.11-0.8); Monocytes % 8.5 % (1.7-12.7); Neutrophils # 6.5 10*3/uL (1.4-7.4); Neutrophils % 73.2 % (38.7-73.9); Platelet Count 289 T/CUMM (130-400); Red Blood Count 3.23 MC/CUMM (3.8-5.5); Red Cell Distribution Width 14.8 % (9.3-17.3); White Blood Count 8.8 T/CUMM (4-12)
[2016-12-08] MEDS: LEVOTHYROXINE 50 MCG TABLET PO SCH (06:08)
[2016-12-08 06:15] LABS: Calcium 7.9 MG/DL (8.5-10.1); Osmolality,Calculated 312.7 MOS/KG (273-304); Potassium 4.4 MMOL/L (3.5-5.1)
[2016-12-08] MEDS: INSULIN REGULAR 100 UNIT/ML SUBCUT SCH ×2 (10:01→12:37)
[2016-12-08] MEDS: ASPIRIN EC 81 MG TABLET PO SCH (10:34)
[2016-12-08] MEDS: CARVEDILOL 12.5 MG TABLET PO SCH (10:34)
[2016-12-08] MEDS: CETIRIZINE 10 MG TABLET PO SCH (10:35)
[2016-12-08] MEDS: CHOLECALCIFEROL 1,000 UNIT TABLET PO SCH (10:35)
[2016-12-08] MEDS: SERTRALINE 50 MG TABLET PO SCH (10:35)
[2016-12-08] MEDS: FLUTICASONE 50 MCG NASAL SPRAY 16 GM BOTTLE BOTH NARES SCH (10:41)
--- NOTE | 2016-12-08 10:59 | Nephrology Progress Note ---
Nephrology - PN: Subj Interval history: Patient denies shortness of breath. Review of systems GI denies nausea or vomiting Physical exam general the patient is chronically ill-appearing, he has trace to 1+ pretibial edema Assessment/plan 1. Acute renal failure-patient's creatinine is 4.5 mg/dL this is improved from 4.6 mg/dL yesterday and around 5.6 mg/dL on presentation 2. Bradycardia-patient's heart rate on presentation was in the 30s, with pacemaker placement the patient's heart rate is now in the 80s 3. Diabetes mellitus 4. Anemia Patient is being discharged today we will have him follow-up with Dr. Walton in a month with a BMP and a CBC Exam (PN)-Nephrology - Vital Signs Vital signs: Period Temp Pulse Resp BP Sys/Schmidt Pulse Ox Last 24 Hr 96.0 F-99.4 F 74-86 12-22 126-167/58-93 96-100 - Lab 12/08/16 04:38 12/08/16 04:38 Most recent lab results Calcium 7.9 MG/DL (8.5-10.1) L 12/08/16 04:38 Magnesium 3.0 MG/DL (1.8-2.4) H 12/06/16 04:24 Assessment and Plan (1) Acute renal failure superimposed on stage 4 chronic kidney disease Status: Acute Assessment and plan: This patient's baseline creatinine about a month ago was around 3.5 mg/dL it is now increased around 5.6 mg/dL. I suspect he has some acute kidney injury related to his decreased heart rate. Will monitor for improvement with the placement of his pacemaker. I do not feel any further investigation is needed at this time. Current Visit: Yes (2) Heart block AV third degree Status: Resolved Assessment and plan: Patient is status post pacemaker placement now. Current Visit: Yes (3) Diabetes Status: Chronic Current Visit: Yes (4) Anemia Status: Acute Assessment and plan: Patient's hematocrit around 28% Current Visit: No (5) Hypertension Status: Chronic Current Visit: No Specialty Discharge - Follow Up or Referrals Follow up with: Trevor Lowery MD [Physician] - 1 Week (Point with Dr. Lowery 1 week post discharge. ) Jayro Walton MD [Physician] - 1 Month (With the BMP and CBC)
--- NOTE | 2016-12-08 11:02 | Discharge Summary ---
<Elvia Damon E - Last Filed: 12/08/16 11:03> Hospital Course - Hospital Course Hospital Course: Mr. Yu, 56-year-old -Citizen Of [place] male, was admitted by Dr. Martin after being evaluated in the emergency department of [facility] December 04, 2016 with uncontrolled hypertension, third-degree AV block. He was placed in the CCU while he received IV nitroglycerin and oral medication adjustments in order to better control his blood pressure. Dr. Lowery was consulted. Patient underwent the following procedure December 05, 2016: PROCEDURAL SUMMARY DDD pacemaker implant from left axillary access. Successful procedure, no complications. He tolerated the procedure well without complication was returned to the CCU in stable condition. He underwent echocardiography which revealed ejection fraction of 55% without significant valvular abnormality. Patient has chronic renal insufficiency for which she is followed by Dr. Umesh Walton. During the hospital stay, his creatinine plateaued at 5.9. It is felt that the acute on chronic renal insufficiency (stage IV) occurred due to lack of perfusion to the kidneys as the patient had significant AV block for an unknown duration of time. He was noted to be in acute congestive heart failure secondary to severe bradycardia. This resolved once he was diuresed and permanent pacemaker implanted. Blood pressures much controlled this morning. Dr. Nowak has seen patient this morning and agrees the patient is stable for discharge. Left precordial area reveals dressing, dry and intact without significant edema. Post pacemaker expectations thoroughly discussed with the patient today. Having felt him at maximal medical therapy, patient is being discharged home in stable condition. He is scheduled for follow-up with Dr. Lowery in 1 week for interrogation of his pacemaker. I will also make him an appointment to see Dr. Martin in approximately 1 month. He is being given a one-month follow-up with Dr. Walton with a BMP and CBC ordered. His primary care provider is Dr. Montes. We will give him an appointment to see Dr. Montes in 2 weeks. Discharge medications include the following: Aspirin 81 mg orally daily Coreg 12.5 mg orally twice daily Nifedipine XL 30 mg orally twice daily Simvastatin 20 mg orally each evening Other noncardiac medications include the following: Cetirizine 10 mg orally daily Vitamin D 5000 units orally daily Flonase nasal spray 1 spray each nostril daily Latanoprost 0.005% 1 drop both eyes twice daily Levothyroxine 50 g 1 p.o. daily Singulair 10 mg orally each evening Sertraline 50 mg orally daily - Time spent with patient Time with patient DS: Greater than 30 minutes Diagnosis - Discharge Diagnosis (1) Acute renal failure superimposed on stage 4 chronic kidney disease Status: Chronic (2) Diabetes Status: Chronic (3) Heart block AV third degree Status: Resolved (4) Acute CHF Status: Resolved (5) Anemia Status: Chronic (6) Elevated troponin Status: Chronic (7) Medical non-compliance Status: Chronic (8) Insulin dependent diabetes mellitus Status: Chronic (9) Uncontrolled hypertension Status: Chronic Specialty Discharge - Follow Up or Referrals Follow up with: Trevor Lowery MD [Physician] - 12/15/16 3:30 pm (Point with Dr. Lowery 1 week post discharge.) Gunnar Montes MD [Primary Care Provider] - 12/23/16 8:15 am Jayro Walton MD [Physician] - 01/11/17 9:15 am (AT [facility] ON 01/11/17 AT 8:30 FOR A BMP and CBC TO BE DRAWN AND SEE AT 9:15) Coy Martin MD [Physician] - 01/09/17 12:50 pm Discharge Plan - Discharge Data Disposition: Disch To Home/Self Care Condition at Discharge: Stable Discharge Diet: heart healthy Activity: other (Post pacemaker expectation) Hygiene: other (Post pacemaker expectation) Weight Bearing at Discharge: other (Post pacemaker expectation) Driving: other (Post pacemaker expectation) Contact your physician if you experience:: fever over 101, Difficulty voiding, Redness or swelling, Nausea/Vomiting, Shortness of breath, Bleeding, pain uncontrolled by pain medications - Discharge Medications New Carvedilol [Coreg] 12.5 mg PO BID #60 tablet Montelukast Tab [Singulair Tab] 10 mg PO BEDTIME tablet NIFEdipine XL TAB [Procardia Xl] 30 mg PO BID #60 tablet Simvastatin [Zocor] 20 mg PO BEDTIME tablet Continue Fluticasone 50 Mcg Nasal [place] [Flonase Nasal [place]] 1 spray BOTH NARES DAILY Cetirizine HCl [Cetirizine Tab] 10 mg PO DAILY Cyanocobalamin Tab [Vitamin B12 Tab] 500 mcg PO DAILY Cholecalciferol (Vitamin D3) [Vitamin D3] 5,000 unit PO DAILY Sertraline [Zoloft] 50 mg PO DAILY Aspirin EC Tab 81 mg PO DAILY Latanoprost [Latanoprost 0.005 % Oph Soln] 1 drop BOTH EYES BEDTIME Insulin Glargine,Hum.rec.anlog [Lantus SoloStar] 10 unit SUBCUT BEDTIME Levothyroxine Tab [Synthroid Tab] 50 mcg PO DAILY@0700 #30 tablet Discontinued amLODIPine [Norvasc] 10 mg PO DAILY Carvedilol [Coreg] 3.125 mg PO BID #60 tablet Minoxidil 2.5 mg PO BID Furosemide Tab [Lasix Tab] 80 mg PO BID DIURETIC #60 tablet metOLazone [Metolazone] 5 mg PO BID methylPREDNISolone DOSEPAK [Medrol Dosepak] 4 mg PO DIRECTED - Follow Up or Referral Follow Up: Trevor Lowery MD [Physician] - 12/15/16 3:30 pm (Point with Dr. Lowery 1 week post discharge.) Gunnar Montes MD [Primary Care Provider] - 12/23/16 8:15 am Jayro Walton MD [Physician] - 01/11/17 9:15 am (AT [facility] ON 01/11/17 AT 8:30 FOR A BMP and CBC TO BE DRAWN AND SEE AT 9:15) Coy Martin MD [Physician] - 01/09/17 12:50 pm - Forms/Instructions Instructions: Pacemaker (DC) Exam - Constitutional Vitals: Period Temp Pulse Resp BP Sys/Schmidt Pulse Ox Last 24 Hr 96.0 F-99.4 F 74-94 18-22 126-167/58-76 96-100 Exam: General: [Appears well with no apparent distress.] [Pleasant and cooperative. ] [Appears comfortable.] HEENT: [PERRL, normocephalic, atraumatic. Mucous membranes moist. No jaundice noted. Conjunctiva moist and clear, sclerae anicteric] Neck: No JVD/HJR, no thyromegaly or lymphadenopathy noted. No carotid bruit appreciated Cardiac: [Regular rate and rhythm.] [No murmur rub or gallop.] Dressing dry and intact left upper chest wall, no obvious edema Lungs: [Clear to auscultation without accessory muscle use to assist the respiratory pattern.] Not requiring oxygen Abdomen: Soft, bowel sounds normoactive. Nontender and nondistended. No abdominal bruit or thrill noted. No masses noted. Musculoskeletal: No fluid collection. Decreased range of motion is noted. Extremities: No clubbing, cyanosis noted. [ No edema noted.] Upper extremity pulses 2+. Lower extremity pulses 2+. Capillary refill less than 3 seconds. Skin: No unusual lesions or rashes. No skin breakdown appreciated. Neuro: Awake, alert and oriented 3. Moves all extremities well without hemiparesis or paralysis. No essential tremor is appreciated. Discharge Results Labs on day of discharge: Labs from last 24 hours 12/08/16 12/08/16 12/08/16 11:24 04:38 04:38 WBC 8.8 RBC 3.23 L Hgb 8.6 L Hct 26.4 L MCV 81.7 L MCH 27 MCHC 32.6 RDW 14.8 Plt Count 289 D MPV 11.1 Neut % (Auto) 73.2 Lymph % (Auto) 12.7 L [place] % (Auto) 8.5 Eos % (Auto) 4.4 Baso % (Auto) 0.9 H Neut # (Auto) 6.5 Lymph # (Auto) 1.1 L [place] # (Auto) 0.8 Eos # (Auto) 0.4 Baso # (Auto) 0.1 Immature Gran % 0.3 Nucleated RBC % 0.0 Immature Gran # 0.03 Nucleated RBCs # 0.00 Sodium 145 Potassium 4.4 Chloride 107 Carbon Dioxide 27 Anion Gap 15.4 H BUN 85 H Creatinine 4.50 H GFR Calculation 18 BUN/Creatinine Ratio 18.00 Glucose 79 POC Glucose 165 H Calculated Osmolality 312.7 H Calcium 7.9 L 12/07/16 12/07/16 12/07/16 19:58 16:57 11:54 WBC RBC Hgb Hct MCV MCH MCHC RDW Plt Count MPV Neut % (Auto) Lymph % (Auto) [place] % (Auto) Eos % (Auto) Baso % (Auto) Neut # (Auto) Lymph # (Auto) [place] # (Auto) Eos # (Auto) Baso # (Auto) Immature Gran % Nucleated RBC % Immature Gran # Nucleated RBCs # Sodium Potassium Chloride Carbon Dioxide Anion Gap BUN Creatinine GFR Calculation BUN/Creatinine Ratio Glucose POC Glucose 210 H 158 H 137 H Calculated Osmolality Calcium - Imaging and Cardiology Cardiology Procedure: report reviewed by me Procedure: Chest x-ray: report reviewed by me, Ultrasound: report reviewed by me DS: Provider Date of admission: 12/04/16 19:14 Primary care physician: Gunnar Montes MD Attending physician on admission: Coy Martin MD Consults: 12/05/16 08:00 Consult to Physician [CONS] Routine Comment: Consulting Provider: Consulting Provider Notified: Yes When should Consulting Provider be notified: Now Consult to Specialist Group: Nephrology When should Consulting Provider be notified: In am Person Notified: GALINA Date Notified: 12/05/16 Time Notified: 09:37 Consult to Physician [CONS] Routine Comment: Insertion of Permanant Pacemaker Consulting Provider: Consult to Specialist Group: Cardiology When should Consulting Provider be notified: In am Person Notified: RICHARD Date Notified: 12/05/16 Time Notified: 08:00 12/05/16 11:36 Consult to Pharmacy [CONS] Routine Reason for Pharmacy Consult: Adjust Meds Renal Funct Discharging clinician: Elvia Damon NP Expected date of discharge: 12/08/16 <Kofi Boggs - Last Filed: 12/08/16 14:43> Hospital Course - Hospital Course Hospital Course: I have seen, interviewed, examined the patient and reviewed his chart and discussed the case with the mid-level provider and agree with the plan as outlined in the note. Diagnosis - Discharge Diagnosis (1) Heart block AV third degree Status: Resolved (2) Diabetes Status: Chronic (3) Chronic kidney disease, stage III (moderate) Status: Acute (4) Medical non-compliance Status: Chronic (5) Uncontrolled hypertension Status: Chronic (6) Insulin dependent diabetes mellitus Status: Chronic (7) Acute CHF Status: Resolved (8) Anemia Status: Chronic
[2016-12-08] MEDS: INSULIN GLARGINE 100 UNIT/ML SUBCUT SCH (12:04)
[2016-12-08 12:32] VITALS: BP 149/69
== END 2016-12-08 16:25 | disposition home or self-care (01) | DRG 242 ==
LOC: N.ED 16:58 → N.EDINP 19:14 → N.CC 19:30 → N.TELEN 12-07 18:02
PROVIDERS: ADMIT Internal Medicine Cardiovascular Disease; ATTEND Internal Medicine Cardiovascular Disease

== ENCOUNTER 2017-06-02 16:31 | Inpatient (IN) ==
[2017-06-02] MEDS ORDERED: SODIUM CHLORIDE 0.9% 500 ML IV STA (19:24)
[2017-06-02] MEDS ORDERED: CEFEPIME 1,000 MG in SODIUM CHLORIDE 0.9% 100 ML IV STA (19:24)
[2017-06-02] MEDS ORDERED: ACETAMINOPHEN 500 MG TABLET PO STA (19:24)
--- NOTE | 2017-06-02 19:40 | Emergency Department Note ---
Sahra Mix Brittany, am scribing for, and in the presence of, Coy Hewitt MD 19 :27. Marcelina Mix Thomas, MD, personally performed the services described in this documentation, ascribed by Kizzy Bocanegra in my presence, and it is both accurate and complete 936 . Arrival - Arrival Chief Complaint: Extremity Problem Stated Complaint: swollen feet and can't walk ED Nursing Triage Note: Pt c/o socrates swelling/pain of his feet x 2 days. Started in the left foot first. Mode of Arrival: Wheelchair Limitations: No Limitations Source: Patient, Family Time Seen by Provider: 06/02/17 19:06 - History of Present Illness HPI Narrative: This is a 56 y/o black male, who presents to the ED with c/o bilateral feet swelling and pain which started 2 days ago. He states the left foot started first and the left foot started earlier today. He denies any sores to the feet or injury. Pt also complains of URI-like Sx. He states he has had a cough which is red tingled and congestion. He denies a fever, chest pain, SOB, or N/V/D. Pt has no other complaints/pain in the ED at this time. Pt has a PMHx of CHF, HTN, pacemaker, IDDM, dyslipidemia, depression, PNA, renal failure, GOUT, and renal failure. Pt has had an eye surgery. Pt has a family medical Hx of heart disease and diabetes. Pt denies a social Hx. Onset (ago): day(s) (2 days ago) Consistency: constant Severity: moderate Quality: aching, sharp Allergies/Adverse Reactions: Allergies Allergy/AdvReac Type Severity Reaction Status Date / Time Penicillins Allergy ANAPHYLAXIS Verified 08/15/16 04:44 Home Medications: Home Medications Medication Instructions Recorded Confirmed Type Aspirin EC Tab 81 mg PO DAILY 07/21/16 12/04/16 History Cetirizine HCl [Cetirizine Tab] 10 mg PO DAILY 07/21/16 12/04/16 History Cholecalciferol (Vitamin D3) 5,000 unit PO DAILY 07/21/16 12/07/16 History [Vitamin D3] Cyanocobalamin Tab [Vitamin B12 500 mcg PO DAILY 07/21/16 12/04/16 History Tab] Fluticasone 50 Mcg Nasal [place] 1 spray BOTH NARES DAILY 07/21/16 12/04/16 History [Flonase Nasal [place]] Sertraline [Zoloft] 50 mg PO DAILY 07/21/16 12/04/16 History Insulin Glargine,Hum.rec.anlog 10 unit SUBCUT BEDTIME 08/08/16 12/04/16 History [Lantus SoloStar] Latanoprost [Latanoprost 0.005 % 1 drop BOTH EYES BEDTIME 08/08/16 12/04/16 History Oph Soln] Levothyroxine Tab [Synthroid Tab] 50 mcg PO DAILY@0700 #30 tablet 08/12/1612/04 Rx Carvedilol [Coreg] 12.5 mg PO BID #60 tablet 12/08/16 Rx Montelukast Tab [Singulair Tab] 10 mg PO BEDTIME tablet 12/08/16 Rx NIFEdipine XL TAB [Procardia Xl] 30 mg PO BID #60 tablet 12/08/16 Rx Simvastatin [Zocor] 20 mg PO BEDTIME tablet 12/08/16 Rx Review of System - Review of System 12 point system: reviewed and no additional remarkable complaints except as stated - Review of System Constitutional: Present: chills. Absent: fever Respiratory: Present: cough (Red tinged). Absent: wheezing Cardiovascular: Absent: chest pain, dyspnea on exertion Gastrointestinal: Absent: nausea, vomiting, diarrhea Genitourinary male: Absent: urgency, dysuria Skin: Absent: rash, change in color Medical,Surgical,& Family Hx - Medical History Cardio: History of: CHF, Hypertension (30 years with echocardiogram showing LVH with normal LVEF) Psychological: History of: Depression Endocrine: History of: Diabetes Mellitus (IDDM) (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), Dyslipidemia, Thyroid Disorder Rheumatology: History of;: Gout Respiratory: History of: Pneumonia Renal: History of: Renal Failure Hematology: History of: Anemia - Surgical History HEENT Surgeries: Surgical HX of: Eye Surgery (Bilateral cataract removal) Abdominal Surgeries: Patient denies: Abdominal Surgery - Family History Family History: Reports;: Family Diabetes (Father), Family Heart Disease (OR- Mother and Father) - Social History Smoking Status: Never smoker Exam Vital Signs: Vital Signs Temperature 100.7 F H 06/02/17 16:32 Pulse Rate 103 H 06/02/17 19:48 Respiratory Rate 18 06/02/17 19:48 Blood Pressure 174/87 06/02/17 19:48 O2 Sat by Pulse Oximetry 97 06/02/17 16:32 - General General appearance: alert, in no apparent distress - Head Head exam: Present: atraumatic, normocephalic - Eye Eye exam: Present: EOMI. Absent: conjunctival injection, periorbital swelling, periorbital tenderness - ENT ENT exam: Present: normal oropharynx, mucous membranes moist, TM's normal bilaterally - Neck Neck exam: Present: full ROM, trachea midline. Absent: tenderness - Chest Chest inspection: Present: symmetric chest wall rise - Respiratory Respiratory exam: Present: normal lung sounds bilaterally. Absent: respiratory distress - Cardiovascular Cardiovascular exam: Present: regular rate, normal rhythm, murmur (MARLENE left heart murmur 3/6 ) - Abdominal Exam Abdominal exam: Present: soft. Absent: distention, tenderness, guarding - Extremities Exam Extremities exam: Present: tenderness (nonspecific of L foot), pedal edema ( Right foot has minimal edema; left pedal edema is 2+ and has rubor and calor up to distal leg) - Neurological Exam Neurological exam: Present: alert, oriented X3. Absent: motor sensory deficit - Psychiatric Psychiatric exam: Present: normal affect, normal mood - Skin Skin exam: Present: warm, dry, intact, normal color (except as above) Course - Consultations Consultation #1: Hospitalist, will see in ED Time: 20:40 Results - Labs CBC & BMP: 06/02/17 19:57 06/02/17 19:57 Lab Results: I have reviewed the patients labs Labs: Laboratory Tests 06/02/17 19:57 WBC 16.4 H RBC 3.67 L Hgb 9.4 L Hct 29.9 L MCV 81.5 L MCH 26 L MCHC 31.4 L RDW 14.6 Plt Count 426 H MPV 10.3 Neut % (Auto) 88.7 H Lymph % (Auto) 5.4 L [place] % (Auto) 4.4 Eos % (Auto) 0.4 Baso % (Auto) 0.4 Neut # (Auto) 14.6 H Lymph # (Auto) 0.9 L [place] # (Auto) 0.7 Eos # (Auto) 0.1 Baso # (Auto) 0.1 Immature Gran % 0.7 Nucleated RBC % 0.0 Immature Gran # 0.11 Nucleated RBCs # 0.00 Immature Plt Fraction 1.6 - Diagnostic Findings Procedure: Chest x-ray: report reviewed by me (Cardiomegaly without overt CHF.) Disposition Clinical Impression: Cellulitis, Fever, Diabetes, Chronic kidney disease, stage III (moderate) Disposition: Still a Patient Time of Disposition: 20:40
[2017-06-02 20:07] LABS: Basophils # 0.1 10*3/uL (0.0-0.2); Basophils % 0.4 % (0.0-0.8); Eosinophils # 0.1 10*3/uL (0.0-0.87); Eosinophils % 0.4 % (0.00-10.9); Hematocrit 29.9 VOL% (42.0-52.0); Hemoglobin 9.4 GM/DL (14.0-18.0); Immature Granulocytes % 0.7 %; Immature Granulocytes Absolute 0.11 #; Lymphocytes # 0.9 10*3/uL (1.4-4.0); Lymphocytes % 5.4 % (21.2-54.2); Mean Corpuscular HGB Conc 31.4 GM/DL (32-36); Mean Corpuscular Hemoglobin 26 PG (27-34); Mean Corpuscular Volume 81.5 FL (87-102); Mean Platelet Volume 10.3 FL (9.6-12.0); Monocytes # 0.7 10*3/uL (0.11-0.8); Monocytes % 4.4 % (1.7-12.7); Neutrophils # 14.6 10*3/uL (1.4-7.4); Neutrophils % 88.7 % (38.7-73.9); Platelet Count 426 T/CUMM (130-400); Red Blood Count 3.67 MC/CUMM (3.8-5.5); Red Cell Distribution Width 14.6 % (9.3-17.3); White Blood Count 16.4 T/CUMM (4-12)
--- NOTE | 2017-06-02 20:19 | XRay Report ---
History: Shortness of breath and fever Date: 06/02/2017 Study: Chest x-ray PA and lateral Comparison exam: December 06, 2016 There is continued cardiomegaly. The mediastinal contour is unchanged. The pulmonary vasculature is upper normal. A left subclavian dual-lead transvenous pacemaker is intact and generally unchanged. There is no definite acute infiltrate compared to the previous study. There is no layering pleural effusion. Osseous structures are unchanged. Impression: Cardiomegaly without overt CHF PROCEDURE INTERPRETED AT [facility] DEPARTMENT OF RADIOLOGY Final Report Signed by: Dr. April Alfaro
[2017-06-02] MEDS ORDERED: ACETAMINOPHEN 500 MG TABLET ONE (20:22)
[2017-06-02 20:23] LABS: Albumin 3.1 G/DL (3.4-5.0); Bilirubin,Total 0.7 MG/DL (0.2-1.0); Calcium 8.7 MG/DL (8.5-10.1); Osmolality,Calculated 285.4 MOS/KG (273-304); Potassium 3.8 MMOL/L (3.5-5.1); Total Protein 7.7 G/DL (6.4-8.3)
[2017-06-02 20:45] LABS: INR 1.1; PT Patient Result 12.2 SECS
[2017-06-02] MEDS ORDERED: ONDANSETRON 4 MG/2 ML VIAL IV PRN (23:45)
[2017-06-02] MEDS ORDERED: GLUCAGON 1 MG VIAL IM PRN (23:45)
[2017-06-02] MEDS ORDERED: DEXTROSE 50% 25 GM/50 ML SYRINGE IV PRN (23:45)
[2017-06-02] MEDS ORDERED: DOCUSATE SODIUM 100 MG CAPSULE PO PRN (23:45)
[2017-06-02] MEDS ORDERED: ACETAMINOPHEN 325 MG TABLET PO PRN (23:45)
[2017-06-03 00:43] LABS: Apearance,Urine Slightly Hazy (Clear); Bacteria,Urine Occasional /HPF (Few); Bilirubin,Urine Negative (Negative); Blood, Urine Small mg/dL (Negative); Glucose,Urine (UA) 50 mg/dL (Negative); Granular Casts,Urine 9 /LPF (0-1); Hyaline Casts,Urine 17 /LPF (0-3); Ketones,Urine Negative (Negative); Mucus,Urine Occasional /LPF (Occasional); Nitrite,Urine Negative (Negative); Protein,Urine >=500 MG/DL; RBC,Urine 2 /HPF (0-4); Squamous Epithelial Cell,Urine Occasional /HPF (0-10); Urine Color Yellow (Yellow); Urine Urobilinogen < 2.0 EU/DL (0.2-1.0); WBC,Urine 7 /HPF (0-6)
--- NOTE | 2017-06-03 01:57 | Hospitalist History & Physical ---
Assessment and Plan - Time spent with patient Time spent with patient: Greater than 30 minutes (1) Cellulitis Status: Acute Assessment and plan: Patient currently afebrile Pending blood and urine cultures We will start patient on Ancef 500 mg every 12 due to kidney function Pain medication as needed Current Visit: Yes (2) Chronic kidney disease, stage III (moderate) Status: Chronic Current Visit: No (3) Diabetes Status: Chronic Assessment and plan: We will restart diabetic regimen as soon as home medications are confirmed Current Visit: Yes (4) Hypertension Status: Chronic Assessment and plan: We will restart hypertension regimen as soon as home medications are confirmed Current Visit: No History of Present Illness Chief complaint: leg swelling History of present illness: Called to [facility] for a Mr. Yu who is a 56 year old male that began having left leg edema three days ago and right leg edema one day ago. Patient states his skin feels tights and the swelling and pain has continued to get worse. He denies any fever but states that it hurts to walk on feet. He denies falling and hitting his legs and denies any recent changes in daily regimens. In the ER , he received blood and urine cultures and 1gram IV of Maxipime, He has a history of gout, HTN, DM, hypothyroidism, sleep apnea, arthritis, CHF, CKD, ND, 3rd degree heart block s\p pacemaker placement. He will be admitted for IV antibiotics and bilateral U/S dopplers to rule out DVT. Home Medications Medication Instructions Recorded Confirmed Type Aspirin EC Tab 81 mg PO DAILY 07/21/16 12/04/16 History Cetirizine HCl [Cetirizine Tab] 10 mg PO DAILY 07/21/16 12/04/16 History Cholecalciferol (Vitamin D3) 5,000 unit PO DAILY 07/21/16 12/07/16 History [Vitamin D3] Cyanocobalamin Tab [Vitamin B12 500 mcg PO DAILY 07/21/16 12/04/16 History Tab] Fluticasone 50 Mcg Nasal [place] 1 spray BOTH NARES DAILY 07/21/16 12/04/16 History [Flonase Nasal [place]] Sertraline [Zoloft] 50 mg PO DAILY 07/21/16 12/04/16 History Insulin Glargine,Hum.rec.anlog 10 unit SUBCUT BEDTIME 11/14/16 03/12/17 History [Lantus SoloStar] Latanoprost [Latanoprost 0.005 % 1 drop BOTH EYES BEDTIME 08/08/16 12/04/16 History Oph Soln] Levothyroxine Tab [Synthroid Tab] 50 mcg PO DAILY@0700 #30 tablet 08/12/1612/04 Rx Carvedilol [Coreg] 12.5 mg PO BID #60 tablet 12/08/16 Rx Montelukast Tab [Singulair Tab] 10 mg PO BEDTIME tablet 12/08/16 Rx NIFEdipine XL TAB [Procardia Xl] 30 mg PO BID #60 tablet 12/08/16 Rx Simvastatin [Zocor] 20 mg PO BEDTIME tablet 12/08/16 Rx Allergies Allergy/AdvReac Type Severity Reaction Status Date / Time Penicillins Allergy ANAPHYLAXIS Verified 08/15/16 04:44 Medical,Surgical,& Family Hx - Medical History Cardio: History of: CHF, Hypertension (30 years with echocardiogram showing LVH with normal LVEF) Psychological: History of: Depression Endocrine: History of: Diabetes Mellitus (IDDM) (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), Dyslipidemia, Thyroid Disorder Rheumatology: History of;: Gout Respiratory: History of: Obstructive Sleep Apnea Renal: History of: Renal Failure Hematology: History of: Anemia - Surgical History Cardiac Surgeries: Sugical HX of: Cardiac Surgery (placemaker placement) HEENT Surgeries: Surgical HX of: Eye Surgery (Bilateral cataract removal) Abdominal Surgeries: Patient denies: Abdominal Surgery - Family History Family History: Reports;: Family Diabetes (Father), Family Heart Disease (ND- Mother and Father) - Social History Smoking Status: Never smoker Frequency of Alcohol Use: None Type of Drug Use: None Marital Status: Lives With:: Spouse Functional capacity: independent ambulation - Constitutional Constitutional: Absent: chills, fever(s), weakness - Cardiovascular Cardiovascular: Absent: chest pain at rest, chest pain with activity, dyspnea, edema - Respiratory Respiratory: Absent: cough, dyspnea - Gastrointestinal Gastrointestinal: Absent: abdominal pain, diarrhea, nausea, vomiting - Genitourinary Genitourinary: Absent: difficulty urinating - Musculoskeletal Musculoskeletal: Present: joint swelling, other (leg swelling) - Neurological Neurological: Present: abnormal gait Exam - Constitutional Vitals: Period Temp Pulse Resp BP Sys/Schmidt Pulse Ox Last 24 Hr 98.4 F-100.7 F 92-107 16-20 167-181/83-90 95-97 General appearance: normal weight, no acute distress - Head Head exam: Present: normal inspection, normocephalic - Eye Eye exam: Present: EOMI, conjunctival injection Pupils: Present: GREGORIA, normal accommodation - ENT ENT exam: Present: normal exam - Neck Neck exam: Present: normal inspection - Respiratory Respiratory exam: Present: clear to auscultation bilaterally. Absent: accessory muscle use (Respirations even and nonlabored. Symmetrical rise and fall of chest.) - Cardiovascular Cardiovascular exam: Present: regular rate and rhythm - GI/Abdominal GI/Abdominal exam: Present: normal bowel sounds, soft. Absent: distended, firm - Extremities Exam Extremities exam: Present: normal capillary refill, full ROM, edema - Expanded Left Lower Hip exam: Present: normal inspection Upper Leg exam: Present: normal inspection Knee exam: Present: normal inspection Lower leg exam: Present: swelling, tenderness Ankle exam: Present: swelling, tenderness Foot/Toe exam: Present: swelling, tenderness Neuro vascular tendon exam: Present: no vascular compromise (Warm to touch) Gait: Present: not tested/not observed Right Lower Hip exam: Present: normal inspection Upper Leg exam: Present: normal inspection Knee exam: Present: deformity (Knot below patella) Lower leg exam: Present: swelling, tenderness Ankle exam: Present: swelling, tenderness Foot/Toe exam: Present: swelling, tenderness Neuro vascular tendon exam: Present: no vascular compromise (Warm to touch) Gait: Present: not tested/not observed - Back Exam Back exam: Present: normal inspection - Neurological Exam Neurological exam: Present: alert, oriented X3 (Makes good eye contact. Answers all questions appropriately.) - Psychiatric Psychiatric exam: Present: normal affect, normal mood - Skin Skin exam: Present: normal color, warm, dry Results - Labs CBC & BMP: 06/02/17 19:57 06/02/17 19:57 Lab Results: I have reviewed the past 24 hour labs
[2017-06-03] MEDS ORDERED: COLCHICINE 0.6 MG TABLET PO ONE ×2 (03:07→05:00)
[2017-06-03] MEDS: predniSONE 20 MG TABLET PO SCH ×2 (05:50→09:22)
--- NOTE | 2017-06-03 09:07 | Ultrasound Report ---
History: Bilateral lower extremity pain and swelling Date: 06/03/2017 Study: Bilateral lower extremity color-flow venous Doppler study Comparison exam: July 22, 2016 Color Doppler, wave form analysis, and compression analysis of the deep veins of both lower extremities from the common femoral vein level through the popliteal vein level shows that the veins are readily compressible. There is no abnormal intraluminal material to suggest thrombus. Waveform analysis is unremarkable. Ultrasound images were captured and archived Impression: No evidence of acute DVT PROCEDURE INTERPRETED AT [facility] DEPARTMENT OF RADIOLOGY Final Report Signed by: Dr. April Alfaro
[2017-06-03] MEDS: ENOXAPARIN 30 MG/0.3 ML SYRINGE SUBCUT SCH (09:21)
[2017-06-03] MEDS: PANTOPRAZOLE 40 MG TABLET PO SCH (09:23)
[2017-06-03] MEDS ORDERED: HYDROmorphone 2 MG/1 ML VIAL IV PRN (12:31)
--- NOTE | 2017-06-03 12:34 | Event Note ---
56-year-old male with history of hypertension, diabetes, hypothyroidism, sleep apnea, CHF, [place] with pacemaker, and chronic kidney disease admitted by the hospitalists on 06/03/2017 with bilateral lower extremity pain due to gouty flareup and wheezing. Patient has elevated white count of 16.4, elevated uric acid of 11.1, and BNP of 2472. Patient has urine and blood cultures pending. He has been started on colchicine and prednisone for his gouty flareup with Katy and Dilaudid as needed for pain. Lower extremity Dopplers are negative for DVT. Patient does have some lower extremity swelling and wheezing with no effusion on chest x-ray. Will give patient some Lasix to assist with fluid removal. With patient's wheezing and elevated BNP we will check echocardiogram due to patient's extensive heart history. Patient's creatinine is 3.3 which is stable for him. Patient's home meds have not been verified yet but when they were are they will be reconciled. Dr. Marks will see and examine patient and further recommendations to follow.
[2017-06-03] MEDS: FUROSEMIDE 40 MG/4 ML VIAL IV SCH (15:09)
[2017-06-03] MEDS ORDERED: LABETALOL 20 MG/4 ML SYRINGE IV ONE (16:06)
[2017-06-03] MEDS ORDERED: LABETALOL 20 MG/4 ML SYRINGE IV PRN (16:09)
[2017-06-03] MEDS: INSULIN LISPRO 100 UNIT/ML SUBCUT SCH (16:26)
[2017-06-03] MEDS: CHOLECALCIFEROL 1,000 UNIT TABLET PO SCH (16:26)
[2017-06-03] MEDS: SERTRALINE 50 MG TABLET PO SCH (16:26)
[2017-06-03] MEDS: CETIRIZINE 10 MG TABLET PO SCH (16:26)
[2017-06-03] MEDS: ASPIRIN EC 81 MG TABLET PO SCH (16:26)
[2017-06-03] MEDS: FLUTICASONE 50 MCG NASAL SPRAY 16 GM BOTTLE BOTH NARES SCH (16:28)
[2017-06-03] MEDS ORDERED: cloNIDine 0.3 MG/24 HR PATCH TRANSDERM SCH (16:30)
--- NOTE | 2017-06-03 17:21 | Hospitalist Progress Note ---
Hospitalist: Subjective Interval history: Ms. Cerrato is a very nice 56-year-old male with history of essential hypertension diabetes chronic hypothyroidism hypercholesterolemia who was admitted with acute gouty arthritis with uric acid up around 11. He is developed some nausea vomiting today and blood pressure johanne up to 200 systolic. Labetalol IV 20 mg was ordered and will give labetalol 10 mg IV every 4 hourly as needed and also start on a clonidine TTS 3 patch. I did retirement plan counselor him to be on low purine diet for his gout attack. He is nausea vomiting is better with Zofran. Discontinue steroids due to hyperglycemia. Continue to adjust meds based on his clinical response. Exam - Constitutional Vitals: Period Temp Pulse Resp BP Sys/Schmidt Pulse Ox Last 24 Hr 98.1 F-100.7 F 90-107 16-20 156-214/80-108 92-97 Results - Labs CBC & BMP: 06/02/17 19:57 06/02/17 19:57
[2017-06-03] MEDS ORDERED: LATANOPROST 0.005% OPH SOLN 2.5 ML BOTTLE BOTH EYES SCH (21:00)
--- NOTE | 2017-06-03 21:42 | ECHO Report ---
Danny Yu Exam Date: 06/03/2017 15:05 Referring Physician: Technologist: Elsa Raines RDCS Age: 56 Ht (in): 66 Wt (lb): 188 Gender: M Exam Location: [facility] Echo Indications: Cellulitis, Chronic kidney disease, stage 3 (moderate), IDDM, Essential (primary) hypertension, Edema, unspecified, Gout, BRANDAN, Presence of cardiac pacemaker BP: 182 / 95 HR: 95 Rhythm: Sinus Technical Quality: Fair IMPRESSIONS Severely reduced LV systolic function with regional wall motion as described below, ejection fraction 30%. Grade 2/4 diastolic dysfunction. Moderate concentric left ventricular hypertrophy. Moderate right ventricular dilation. Moderate left atrial enlargement. Mild right atrial enlargement. Mild mitral, tricuspid and pulmonic regurgitation. Pulmonary hypertension with pulmonary artery pressure estimated at 68 mmHg. MEASUREMENTS (Male / Female) Normal Values 2D ECHO LV Diastolic Diameter PLAX 4.5 cm 4.2 - 5.9 / 3.9 - 5.3 cm LV Systolic Diameter PLAX 3.8 cm LV Fractional Shortening PLAX 15.8 % IVS Diastolic Thickness 1.6 cm 0.6 - 1.0 / 0.6 - 0.9 cm LVPW Diastolic Thickness 1.6 cm 0.6 - 1.0 / 0.6 - 0.9 cm RV Internal Dim ED PLAX 3.5 cm Aortic Root Diameter 3.6 cm LA Systolic Diameter LX 5.0 cm 3.0 - 4.0 / 2.7 - 3.8 cm DOPPLER TR Peak Velocity 381.0 cm/s TR Peak Gradient 58.1 mmHg FINDINGS Left Ventricle Normal left ventricular cavity size. Moderate left ventricular hypertrophy. Left ventricular ejection fraction is estimated at 30%. There is poor endocardial resolution which hinders regional wall motion assessment, but overall there does appear to be global hypokinesis, and abnormal septal motion consistent with underlying bundle branch block and/or paced rhythm. There is grade 2/4 diastolic dysfunction consistent with increased left atrial pressure. Right Ventricle Mildly increased right ventricular size. Catheter/pacemaker wire visualized in the right ventricle. Right Atrium The right atrium is mildly enlarged. Catheter/pacemaker wire in the right atrial cavity. Left Atrium The left atrium is moderately enlarged. Mitral Valve Morphologically normal mitral valve. Mild mitral valve regurgitation. Aortic Valve Morphologically normal aortic valve without significant sclerosis or stenosis. There is no aortic regurgitation. Tricuspid Valve Morphologically normal tricuspid valve. Mild tricuspid valve regurgitation. Tricuspid regurgitation velocities suggest a PAP of 68 mmHg. Pulmonic Valve Morphologically normal pulmonic valve. Trace pulmonary valve regurgitation. Pericardium Normal pericardium without effusion. Aorta Normal ascending aorta dimension. Rosenda Parker MD (Electronically Signed) Final Date: 03 June 2017 21:41
[2017-06-04 06:23] LABS: Basophils % 0.1 % (0.0-0.8); Hematocrit 25.1 VOL% (42.0-52.0); Immature Granulocytes % 1.1 %; Immature Granulocytes Absolute 0.16 #; Lymphocytes # 0.6 10*3/uL (1.4-4.0); Lymphocytes % 4.1 % (21.2-54.2); Mean Corpuscular HGB Conc 31.9 GM/DL (32-36); Mean Corpuscular Hemoglobin 26 PG (27-34); Mean Corpuscular Volume 79.9 FL (87-102); Mean Platelet Volume 10.6 FL (9.6-12.0); Monocytes # 0.7 10*3/uL (0.11-0.8); Monocytes % 4.7 % (1.7-12.7); Neutrophils # 13.4 10*3/uL (1.4-7.4); Platelet Count 356 T/CUMM (130-400); Red Blood Count 3.14 MC/CUMM (3.8-5.5); Red Cell Distribution Width 14.7 % (9.3-17.3); White Blood Count 14.9 T/CUMM (4-12)
[2017-06-04 06:38] LABS: Lymphocytes 5 % (20-55); Segmented Neutrophils 94 % (50-85); Total Cells Counted 100
[2017-06-04 06:42] LABS: Hypochromasia 1+; Microcytosis 1+; Ovalocytes Slight; Platelet Estimate Normal
[2017-06-04 06:45] LABS: Calcium 7.9 MG/DL (8.5-10.1); Magnesium 2.4 MG/DL (1.8-2.4); Osmolality,Calculated 292.4 MOS/KG (273-304); Potassium 3.8 MMOL/L (3.5-5.1)
[2017-06-04] MEDS ORDERED: LEVOTHYROXINE 50 MCG TABLET PO SCH (07:00)
[2017-06-04] MEDS: ASPIRIN EC 81 MG TABLET PO SCH (09:06)
[2017-06-04] MEDS: INSULIN LISPRO 100 UNIT/ML SUBCUT SCH (09:06)
[2017-06-04] MEDS: PANTOPRAZOLE 40 MG TABLET PO SCH (09:06)
[2017-06-04] MEDS: ENOXAPARIN 30 MG/0.3 ML SYRINGE SUBCUT SCH (09:06)
[2017-06-04] MEDS: FUROSEMIDE 40 MG/4 ML VIAL IV SCH (09:06)
[2017-06-04] MEDS: CETIRIZINE 10 MG TABLET PO SCH (09:06)
[2017-06-04] MEDS: SERTRALINE 50 MG TABLET PO SCH (09:06)
[2017-06-04] MEDS: CHOLECALCIFEROL 1,000 UNIT TABLET PO SCH (09:06)
[2017-06-04] MEDS: FLUTICASONE 50 MCG NASAL SPRAY 16 GM BOTTLE BOTH NARES SCH (09:07)
--- NOTE | 2017-06-04 11:42 | Discharge Summary ---
Hospital Course - Hospital Course Hospital Course: 56-year-old male with history of hypertension, diabetes, hypothyroidism, sleep apnea, CHF, MD with pacemaker, and chronic kidney disease admitted by hospitalist on 06/03/2017 with bilateral lower extremity pain due to gouty flareup and wheezing. Patient's wheezing has resolved and he feels much better. He has been started on Uloric 3 times a week for his gout and restarted on his home dosage of Lasix. He had a bout of nausea and vomiting yesterday but that has since resolved and he has tolerated several meals since then. Patient's blood sugars were elevated but he was on steroids and these have since been stopped. Dr. lira did discuss low purine diet with patient. He will be discharged home on his blood pressure medication, home dose of Lasix, Uloric, [place] and a follow-up with Dr. Walton his manager of environmental services. Care coordination, chart review, and completed discharge paperwork took approximately 36 minutes. - Time spent with patient Time with patient DS: Greater than 30 minutes Diagnosis - Discharge Diagnosis (1) Gout attack Status: Resolved (2) Congestive heart failure Status: Chronic (3) Hypertension Status: Chronic (4) Chronic kidney disease, stage III (moderate) Status: Chronic Discharge Plan - Discharge Data Disposition: Disch To Home/Self Care Condition at Discharge: Stable Discharge Diet: other (Low purine diet) Activity: resume usual activities as tolerated Contact your physician if you experience:: Shortness of breath, pain uncontrolled by pain medications - Discharge Medications New Febuxostat [Uloric] 80 mg PO MoWeFr@0900 #14 tablet HYDROcodone/ACETAMIN 5-325 [[place] 5-325] 1 tablet PO Q4H PRN #30 tablet PRN Reason: Pain Mild (1-3) cloNIDine 0.3 MG/24 HR PATCH [[id number]-[id number] Patch] 1 patch TRANSDERM Q7DAY # 4 patch Continue Fluticasone 50 Mcg Nasal [place] [Flonase Nasal [place]] 1 spray BOTH NARES DAILY Cetirizine HCl [Cetirizine Tab] 10 mg PO DAILY Sertraline [Zoloft] 50 mg PO DAILY Aspirin EC Tab 81 mg PO DAILY Latanoprost [Latanoprost 0.005 % Oph Soln] 1 drop BOTH EYES BEDTIME Insulin Glargine,Hum.rec.anlog [Lantus SoloStar] 12 unit SUBCUT BEDTIME Levothyroxine Tab [Synthroid Tab] 50 mcg PO DAILY@0700 #30 tablet Furosemide Tab [Lasix Tab] 1 tablet PO BID Cholecalciferol (Vitamin D3) [Vitamin D3] 1 tablet PO DAILY - Follow Up or Referral Follow Up: Jayro Walton MD [Physician] - 1 Week - Forms/Instructions Exam - Constitutional Vitals: Period Temp Pulse Resp BP Sys/Schmidt Pulse Ox Last 24 Hr 97.1 F-98.1 F 69-94 16-20 149-214/72-108 90-97 Exam: 56-year-old -Micronesian male, no acute distress, alert and oriented Chest clear CV regular rate and rhythm Abdomen soft and nontender Extremities with mild pedal edema, improved from yesterday Discharge Results Procedures and tests throughout hospitalization: Pending Orders 06/02/17 20:00 Blood Culture Stat 06/03/17 Urine Culture Routine Labs on day of discharge: Labs from last 24 hours 06/04/17 06/04/17 06/04/17 07:21 06:00 06:00 WBC 14.9 H RBC 3.14 L Hgb 8.0 L Hct 25.1 L MCV 79.9 L MCH 26 L MCHC 31.9 L RDW 14.7 Plt Count 356 MPV 10.6 Neut % (Auto) 90.0 H Lymph % (Auto) 4.1 L Moore % (Auto) 4.7 Eos % (Auto) 0.0 Baso % (Auto) 0.1 Neut # (Auto) 13.4 H Lymph # (Auto) 0.6 L Moore # (Auto) 0.7 Eos # (Auto) 0.0 Baso # (Auto) 0.0 Total Counted 100 Immature Gran % 1.1 Nucleated RBC % 0.0 Immature Gran # 0.16 Segmented Neutrophils 94 H Lymphocytes 5 L Monocytes 1 L Nucleated RBCs # 0.00 Platelet Estimate Normal Immature Plt Fraction 0.0 Hypochromasia 1+ Microcytosis 1+ Ovalocytes Slight Sodium 140 Potassium 3.8 Chloride 106 Carbon Dioxide 26 Anion Gap 11.8 BUN 35 H Creatinine 3.40 H GFR Calculation 25 BUN/Creatinine Ratio 10.00 Glucose 202 H POC Glucose 229 H Calculated Osmolality 292.4 Calcium 7.9 L Magnesium 2.4 06/03/17 06/03/17 06/03/17 19:37 15:26 11:38 WBC RBC Hgb Hct MCV MCH MCHC RDW Plt Count MPV Neut % (Auto) Lymph % (Auto) Moore % (Auto) Eos % (Auto) Baso % (Auto) Neut # (Auto) Lymph # (Auto) Moore # (Auto) Eos # (Auto) Baso # (Auto) Total Counted Immature Gran % Nucleated RBC % Immature Gran # Segmented Neutrophils Lymphocytes Monocytes Nucleated RBCs # Platelet Estimate Immature Plt Fraction Hypochromasia Microcytosis Ovalocytes Sodium Potassium Chloride Carbon Dioxide Anion Gap BUN Creatinine GFR Calculation BUN/Creatinine Ratio Glucose POC Glucose 319 H 273 H 212 H Calculated Osmolality Calcium Magnesium Preliminary micro results at discharge 06/03/17 Unknown Urine Culture - Preliminary Urine,Voided No Growth at 24 hours. 06/02/17 20:00 Blood Culture - Preliminary Blood No growth at 1 day 06/02/17 20:00 Blood Culture - Preliminary Blood No growth at 1 day DS: Provider Date of admission: 06/02/17 22:30 Primary care physician: Gunnar Montes MD Attending physician on admission: Kevin Zayas MD Discharging clinician: TOMASA Dumont Expected date of discharge: 06/04/17
[2017-06-04 12:26] VITALS: BP 157/81
[2017-06-05] MEDS ORDERED: FEBUXOSTAT 80 MG TABLET PO SCH (09:00)
--- NOTE | 2017-06-05 13:58 | Physician Query Form ---
CLICK EDIT DOCUMENT TO SELECT QUERY ANSWER --> OK --> SIGN Ramona Higuera RN Clinical Briar Cutter W) [phone] (f) [phone] [email or web address] PROVIDERS: Make your selection(s) from the choices in EACH section by typing an "x" and enter comments in the comment section. Please use your independent medical judgment in providing your response. This request does not imply that any particular answer is desired or expected. CLINICAL INDICATORS: (Providers should not edit this section) Based on documentation of "Chronic CHF" BNP of 2472. Echo shows "EF 30% with grade 2/4 diastolic dysfunction" Please Clarify for CHF Please provide further specificity regarding CHF. ACUITY: ( ) Acute ( ) Chronic ( x) Acute on Chronic ( ) Clinically unable to determine TYPE: (x ) Systolic (HFrEF - heart failure with reduced systolic function/EF) ( ) Diastolic (HFpEF - heart failure with preserved systolic function/EF) ( ) Combined Systolic/Diastolic ( ) Other, please specify: ( ) Clinically unable to determine ( x) Past Medical History of Systolic CHF ( ) Past Medical History of Diastolic CHF ( ) Clinically unable to determine COMMENTS: PLEASE ALSO DOCUMENT RESPONSE IN PROGRESS NOTES AND/OR DISCHARGE SUMMARY Use of terms such as suspected, likely, or probable (associated with a specific diagnosis that is being evaluated, monitored, or treated as if it exists) are acceptable and can be restated in the discharge summary if not ruled out. MTDD
--- NOTE | 2017-06-05 14:00 | Physician Query Form ---
CLICK EDIT DOCUMENT TO SELECT QUERY ANSWER --> OK --> SIGN Ramona Higuera RN Clinical Resort Manager W) [phone] (f) [phone] [email or web address] PROVIDERS: Make your selection(s) from the choices in EACH section by typing an "x" and enter comments in the comment section. Please use your independent medical judgment in providing your response. This request does not imply that any particular answer is desired or expected. CLINCAL INDICATORS: (Providers should not edit this section) Based on documentation of "blood pressure johanne up to 200 systolic. Labetalol IV 20 mg was ordered and will give labetalol 10 mg IV every 4 hourly as needed and also start on a clonidine TTS 3 patch" BP as high as 214/108. Note: Hypertensive crises can present as hypertensive urgency or hypertensive emergency. Clarify which, if any of the following, is a more accurate diagnosis reflecting the type and acuity of the documented hypertension: TYPE: ( ) Hypertensive Urgency ( ) Hypertensive Emergency ( ) Uncontrolled chronic hypertension at baseline ( ) Other, please specify: ( ) Clinically unable to determine COMMENTS: Criteria Source - Up to Date (This topic last updated: Nov 25, 2015) HYPERTENSIVE URGENCY: Severe hypertension (usually a diastolic blood pressure above 120 mmHg) in asymptomatic patients is referred to as hypertensive urgency. There is no proven benefit from rapid reduction in blood pressure in asymptomatic patients who have no evidence of acute end-organ damage and are at little short-term risk. HYPERTENSIVE EMERGENCY: Severe hypertension (usually a diastolic blood pressure above 120 mmHg) with evidence of acute end-organ damage is defined as a hypertensive emergency. A hypertensive emergency can be life threatening and requires immediate treatment, usually with parenteral medications in a monitored setting. PLEASE ALSO DOCUMENT RESPONSE IN PROGRESS NOTES AND/OR DISCHARGE SUMMARY Use of terms such as suspected, likely, or probable (associated with a specific diagnosis that is being evaluated, monitored, or treated as if it exists) are acceptable and can be restated in the discharge summary if not ruled out. MTDD
--- NOTE | 2017-06-05 14:06 | Physician Query Form ---
CLICK EDIT DOCUMENT TO SELECT QUERY ANSWER --> OK --> SIGN Ramona Higuera RN Clinical Bariatric Coordinator W) [phone] (f) [phone] [email or web address] PROVIDERS: Make your selection(s) from the choices in EACH section by typing an "x" and enter comments in the comment section. Please use your independent medical judgment in providing your response. This request does not imply that any particular answer is desired or expected. CLINICAL INDICATORS: (Providers should not edit this section) Based on documentation of "Chronic kidney disease stage 3" Creatinine of 3.4. GFR of 25. Monitored with serial lab checks. Please clarify the stage of CKD. Chronic Kidney Disease Stages Source: National Kid[employer] Foundation ( ) Stage I (eGFR > or = 90) ( ) Stage II (eGFR 60 - 89) ( ) Stage III (eGFR 30 - 59) ( x) Stage IV (eGFR 15 - 29) ( ) Stage V (eGFR < 15 or dialysis) ( ) Other, please specify: ( ) Clinically unable to determine COMMENTS: PLEASE ALSO DOCUMENT RESPONSE IN PROGRESS NOTES AND/OR DISCHARGE SUMMARY Use of terms such as suspected, likely, or probable (associated with a specific diagnosis that is being evaluated, monitored, or treated as if it exists) are acceptable and can be restated in the discharge summary if not ruled out. MTDD
--- NOTE | 2017-06-06 08:04 | Physician Query Form ---
CLICK EDIT DOCUMENT TO SELECT QUERY ANSWER --> OK --> SIGN Ramona Higuera RN Clinical Rack Washer W) [phone] (f) [phone] [email or web address]: Make your selection(s) from the choices in EACH section by typing an "x" and enter comments in the comment section. Please use your independent medical judgment in providing your response. This request does not imply that any particular answer is desired or expected. CLINICAL INDICATORS: (Providers should not edit this section) Based on documentation of "blood pressure johanne up to 200 systolic. Labetalol IV 20 mg was ordered and will give labetalol 10 mg IV every 4 hourly as needed and also start on a clonidine TTS 3 patch" BP as high as 214/108. Note: Hypertensive crises can present as hypertensive urgency or hypertensive emergency. Clarify which, if any of the following, is a more accurate diagnosis reflecting the type and acuity of the documented hypertension: TYPE: (x ) Hypertensive Urgency ( ) Hypertensive Emergency ( ) Uncontrolled chronic hypertension at baseline ( ) Other, please specify: ( ) Clinically unable to determine COMMENTS: Criteria Source - Up to Date (This topic last updated: Nov 25, 2015) HYPERTENSIVE URGENCY: Severe hypertension (usually a diastolic blood pressure above 120 mmHg) in asymptomatic patients is referred to as hypertensive urgency. There is no proven benefit from rapid reduction in blood pressure in asymptomatic patients who have no evidence of acute end-organ damage and are at little short-term risk. HYPERTENSIVE EMERGENCY: Severe hypertension (usually a diastolic blood pressure above 120 mmHg) with evidence of acute end-organ damage is defined as a hypertensive emergency. A hypertensive emergency can be life threatening and requires immediate treatment, usually with parenteral medications in a monitored setting. PLEASE ALSO DOCUMENT RESPONSE IN PROGRESS NOTES AND/OR DISCHARGE SUMMARY Use of terms such as suspected, likely, or probable (associated with a specific diagnosis that is being evaluated, monitored, or treated as if it exists) are acceptable and can be restated in the discharge summary if not ruled out. MTDD
== END 2017-06-04 14:30 | disposition home or self-care (01) | DRG 553 ==
LOC: N.ED 16:31 → N.EDINP 22:30 → SUATTDRO 22:30 → N.EDINP 22:55 → N.5E 23:00
PROVIDERS: ADMIT Family Medicine; ATTEND Hospitalist

== ENCOUNTER 2017-11-09 16:07 | Inpatient (IN) ==
[2017-11-09] MEDS ORDERED: FUROSEMIDE 100 MG/10 ML VIAL IV STA (18:34)
[2017-11-09] MEDS ORDERED: FUROSEMIDE 100 MG/10 ML VIAL ONE (19:21)
[2017-11-09 19:30] LABS: Basophils # 0.1 10*3/uL (0.0-0.2); Eosinophils # 0.2 10*3/uL (0.0-0.87); Eosinophils % 2.8 % (0.00-10.9); Hemoglobin 9.2 GM/DL (14.0-18.0); Immature Granulocytes % 0.6 %; Immature Granulocytes Absolute 0.04 #; Lymphocytes # 0.5 10*3/uL (1.4-4.0); Lymphocytes % 6.6 % (21.2-54.2); Mean Corpuscular HGB Conc 29.7 GM/DL (32-36); Mean Corpuscular Hemoglobin 23 PG (27-34); Mean Corpuscular Volume 76.5 FL (87-102); Mean Platelet Volume 9.8 FL (9.6-12.0); Monocytes # 0.5 10*3/uL (0.11-0.8); Monocytes % 6.4 % (1.7-12.7); Neutrophils # 5.9 10*3/uL (1.4-7.4); Neutrophils % 82.6 % (38.7-73.9); Platelet Count 335 T/CUMM (130-400); Red Blood Count 4.05 MC/CUMM (3.8-5.5); White Blood Count 7.2 T/CUMM (4-12)
[2017-11-09 20:19] LABS: Albumin 3.7 G/DL (3.4-5.0); Bilirubin,Total 0.5 MG/DL (0.2-1.0); Calcium 8.5 MG/DL (8.5-10.1); Osmolality,Calculated 294.1 MOS/KG (273-304); Potassium 3.3 MMOL/L (3.5-5.1); Total Protein 7.9 G/DL (6.4-8.3)
[2017-11-09 20:21] LABS: Troponin I Only 0.053 NG/ML (0.00-0.045)
[2017-11-09] MEDS ORDERED: ONDANSETRON 4 MG/2 ML VIAL IV PRN (21:44)
[2017-11-09] MEDS ORDERED: DEXTROSE 50% 25 GM/50 ML VIAL IV PRN (21:44)
[2017-11-09] MEDS ORDERED: GLUCAGON 1 MG VIAL IM PRN (21:44)
[2017-11-09] MEDS ORDERED: ACETAMINOPHEN 325 MG TABLET PO PRN (21:44)
[2017-11-09] MEDS ORDERED: hydrALAZINE 20 MG/1 ML VIAL IV PRN (21:50)
[2017-11-09] MEDS ORDERED: SERTRALINE 50 MG TABLET PO PRN (22:16)
[2017-11-10] MEDS: MONTELUKAST 10 MG TABLET PO SCH ×2 (00:42→20:21)
[2017-11-10] MEDS: MINOXIDIL 10 MG TABLET PO SCH ×3 (00:42→20:21)
[2017-11-10] MEDS: INSULIN GLARGINE 100 UNIT/ML SUBCUT SCH ×2 (00:42→20:21)
[2017-11-10] MEDS: LATANOPROST 0.005% OPH SOLN 2.5 ML BOTTLE BOTH EYES SCH ×2 (00:42→20:22)
[2017-11-10] MEDS: LEVOTHYROXINE 50 MCG TABLET PO SCH (07:00)
[2017-11-10 07:47] LABS: Osmolality,Calculated 303.7 MOS/KG (273-304); Potassium 3.5 MMOL/L (3.5-5.1); Risk Ratio 3.58; Thyroid Stimulating Hormone 2.71 uIU/ml (0.358-3.74); VLDL CHOLESTEROL 17.8 MG/DL
[2017-11-10 07:48] LABS: Basophils # 0.1 10*3/uL (0.0-0.2); Basophils % 0.4 % (0.0-0.8); Eosinophils # 0.1 10*3/uL (0.0-0.87); Eosinophils % 1.2 % (0.00-10.9); Hematocrit 27.9 VOL% (42.0-52.0); Hemoglobin 8.3 GM/DL (14.0-18.0); Immature Granulocytes % 0.8 %; Immature Granulocytes Absolute 0.09 #; Lymphocytes # 0.3 10*3/uL (1.4-4.0); Lymphocytes % 2.5 % (21.2-54.2); Mean Corpuscular HGB Conc 29.7 GM/DL (32-36); Mean Corpuscular Hemoglobin 23 PG (27-34); Mean Corpuscular Volume 77.5 FL (87-102); Mean Platelet Volume 9.7 FL (9.6-12.0); Monocytes # 0.5 10*3/uL (0.11-0.8); Monocytes % 4.7 % (1.7-12.7); Neutrophils # 10.4 10*3/uL (1.4-7.4); Neutrophils % 90.4 % (38.7-73.9); Platelet Count 294 T/CUMM (130-400); White Blood Count 11.5 T/CUMM (4-12)
[2017-11-10 08:12] LABS: Lymphocytes 1 % (20-55); Segmented Neutrophils 97 % (50-85); Total Cells Counted 100
[2017-11-10 08:13] LABS: Anisocytosis 1+; Hypochromasia 1+; Microcytosis 1+; Platelet Estimate Normal
[2017-11-10] MEDS ORDERED: CHOLECALCIFEROL 5,000 UNIT TABLET PO SCH (09:00)
[2017-11-10] MEDS: INSULIN LISPRO 100 UNIT/ML SUBCUT SCH ×4 (09:42→21:59)
[2017-11-10] MEDS: amLODIPine 10 MG TABLET PO SCH (09:47)
[2017-11-10] MEDS: CETIRIZINE 10 MG TABLET PO SCH (09:47)
[2017-11-10] MEDS: PANTOPRAZOLE 40 MG TABLET PO SCH (09:48)
[2017-11-10] MEDS: POTASSIUM CHLORIDE 20 MEQ TABLET PO SCH (09:48)
[2017-11-10] MEDS: FUROSEMIDE 40 MG/4 ML VIAL IV SCH ×2 (09:49→17:05)
[2017-11-10] MEDS: ASPIRIN EC 81 MG TABLET PO SCH (09:49)
[2017-11-10] MEDS: CYANOCOBALAMIN 500 MCG TABLET PO SCH (09:50)
[2017-11-10] MEDS: FLUTICASONE 50 MCG NASAL SPRAY 16 GM BOTTLE BOTH NARES SCH (09:50)
[2017-11-11] MEDS: LEVOTHYROXINE 50 MCG TABLET PO SCH (05:19)
[2017-11-11 06:04] LABS: Basophils % 0.3 % (0.0-0.8); Eosinophils # 0.3 10*3/uL (0.0-0.87); Eosinophils % 4.4 % (0.00-10.9); Hematocrit 25.2 VOL% (42.0-52.0); Hemoglobin 7.4 GM/DL (14.0-18.0); Immature Granulocytes % 0.7 %; Immature Granulocytes Absolute 0.04 #; Lymphocytes # 0.4 10*3/uL (1.4-4.0); Lymphocytes % 6.5 % (21.2-54.2); Mean Corpuscular HGB Conc 29.4 GM/DL (32-36); Mean Corpuscular Hemoglobin 22 PG (27-34); Mean Corpuscular Volume 76.1 FL (87-102); Monocytes # 0.4 10*3/uL (0.11-0.8); Monocytes % 6.1 % (1.7-12.7); Neutrophils # 4.7 10*3/uL (1.4-7.4); Platelet Count 267 T/CUMM (130-400); Red Blood Count 3.31 MC/CUMM (3.8-5.5); Red Cell Distribution Width 16.9 % (9.3-17.3); White Blood Count 5.7 T/CUMM (4-12)
[2017-11-11] MEDS ORDERED: SODIUM CHLORIDE 0.9% 1,000 ML IV PRN (06:20)
[2017-11-11] MEDS ORDERED: FUROSEMIDE 20 MG/2 ML VIAL IV PRN (06:20)
[2017-11-11 06:40] LABS: Calcium 8.2 MG/DL (8.5-10.1); Osmolality,Calculated 296.1 MOS/KG (273-304); Potassium 3.7 MMOL/L (3.5-5.1)
[2017-11-11] MEDS: INSULIN LISPRO 100 UNIT/ML SUBCUT SCH ×4 (07:09→22:29)
[2017-11-11] MEDS: MINOXIDIL 10 MG TABLET PO SCH ×2 (08:18→22:28)
[2017-11-11] MEDS: CYANOCOBALAMIN 500 MCG TABLET PO SCH (08:19)
[2017-11-11] MEDS: amLODIPine 10 MG TABLET PO SCH (08:19)
[2017-11-11] MEDS: CETIRIZINE 10 MG TABLET PO SCH (08:20)
[2017-11-11] MEDS: PANTOPRAZOLE 40 MG TABLET PO SCH (08:20)
[2017-11-11] MEDS: CHOLECALCIFEROL 5,000 UNIT TABLET PO SCH (08:20)
[2017-11-11] MEDS: POTASSIUM CHLORIDE 20 MEQ TABLET PO SCH (08:20)
[2017-11-11] MEDS: ASPIRIN EC 81 MG TABLET PO SCH (08:20)
[2017-11-11] MEDS: FUROSEMIDE 40 MG/4 ML VIAL IV SCH ×2 (08:21→16:18)
[2017-11-11] MEDS: FLUTICASONE 50 MCG NASAL SPRAY 16 GM BOTTLE BOTH NARES SCH (08:24)
[2017-11-11 13:29] LABS: Albumin 3.2 G/DL (3.4-5.0); Bilirubin,Direct 0.17 MG/DL (0.0-0.20); Bilirubin,Indirect 0.3 MG/DL (0.0-1.0); Bilirubin,Total 0.5 MG/DL (0.2-1.0); Total Protein 6.6 G/DL (6.4-8.3)
[2017-11-11] MEDS ORDERED: FUROSEMIDE 20 MG/2 ML VIAL IV ONE (13:47)
[2017-11-11 19:28] LABS: Hemoglobin 8.4 GM/DL (14.0-18.0)
[2017-11-11] MEDS: MONTELUKAST 10 MG TABLET PO SCH (22:28)
[2017-11-11] MEDS: INSULIN GLARGINE 100 UNIT/ML SUBCUT SCH (22:29)
[2017-11-11] MEDS: LATANOPROST 0.005% OPH SOLN 2.5 ML BOTTLE BOTH EYES SCH (22:33)
[2017-11-12 06:01] LABS: Basophils # 0.1 10*3/uL (0.0-0.2); Basophils % 0.7 % (0.0-0.8); Eosinophils # 0.3 10*3/uL (0.0-0.87); Eosinophils % 4.5 % (0.00-10.9); Hematocrit 28.1 VOL% (42.0-52.0); Hemoglobin 8.3 GM/DL (14.0-18.0); Immature Granulocytes % 0.6 %; Immature Granulocytes Absolute 0.04 #; Lymphocytes # 0.3 10*3/uL (1.4-4.0); Lymphocytes % 4.7 % (21.2-54.2); Mean Corpuscular HGB Conc 29.5 GM/DL (32-36); Mean Corpuscular Hemoglobin 23 PG (27-34); Mean Corpuscular Volume 78.7 FL (87-102); Mean Platelet Volume 9.8 FL (9.6-12.0); Monocytes # 0.4 10*3/uL (0.11-0.8); Monocytes % 6.1 % (1.7-12.7); Neutrophils % 83.4 % (38.7-73.9); Platelet Count 286 T/CUMM (130-400); Red Blood Count 3.57 MC/CUMM (3.8-5.5); Red Cell Distribution Width 16.9 % (9.3-17.3); White Blood Count 7.2 T/CUMM (4-12)
[2017-11-12] MEDS: LEVOTHYROXINE 50 MCG TABLET PO SCH (06:12)
[2017-11-12 06:31] LABS: Calcium 7.7 MG/DL (8.5-10.1); Eosinophils 1 % (0-10); Lymphocytes 14 % (20-55); Microcytosis 2+; Osmolality,Calculated 298.3 MOS/KG (273-304); Platelet Estimate Normal; Potassium 4.2 MMOL/L (3.5-5.1); Segmented Neutrophils 84 % (50-85); Total Cells Counted 100
[2017-11-12] MEDS: INSULIN LISPRO 100 UNIT/ML SUBCUT SCH ×5 (07:05→22:56)
[2017-11-12] MEDS ORDERED: PROPOFOL 200 MG/20 ML VIAL IV ONE (08:20)
[2017-11-12] MEDS ORDERED: ETOMIDATE 40 MG/20 ML VIAL IV ONE (08:21)
[2017-11-12] MEDS: amLODIPine 10 MG TABLET PO SCH (08:44)
[2017-11-12] MEDS: FUROSEMIDE 40 MG/4 ML VIAL IV SCH ×3 (08:44→20:40)
[2017-11-12] MEDS: ASPIRIN EC 81 MG TABLET PO SCH (08:44)
[2017-11-12] MEDS: CHOLECALCIFEROL 5,000 UNIT TABLET PO SCH (08:44)
[2017-11-12] MEDS: CYANOCOBALAMIN 500 MCG TABLET PO SCH (08:44)
[2017-11-12] MEDS: FLUTICASONE 50 MCG NASAL SPRAY 16 GM BOTTLE BOTH NARES SCH (08:44)
[2017-11-12] MEDS: CETIRIZINE 10 MG TABLET PO SCH (08:44)
[2017-11-12] MEDS: POTASSIUM CHLORIDE 20 MEQ TABLET PO SCH (08:44)
[2017-11-12] MEDS: PANTOPRAZOLE 40 MG TABLET PO SCH (08:45)
[2017-11-12] MEDS: MINOXIDIL 10 MG TABLET PO SCH ×2 (08:45→20:40)
[2017-11-12] MEDS: BISACODYL 5 MG TABLET PO SCH ×2 (08:56→15:56)
[2017-11-12] MEDS ORDERED: POLYETHYLENE GLYCOL 3350/ELECTROLYTES 4,000 ML BOTTLE PEG ONE (16:00)
[2017-11-12] MEDS: INSULIN GLARGINE 100 UNIT/ML SUBCUT SCH (20:33)
[2017-11-12] MEDS: MONTELUKAST 10 MG TABLET PO SCH (20:40)
[2017-11-12] MEDS: LATANOPROST 0.005% OPH SOLN 2.5 ML BOTTLE BOTH EYES SCH (20:54)
[2017-11-12] MEDS ORDERED: MAGNESIUM CITRATE 300 ML BOTTLE PO ONE (21:00)
[2017-11-13] MEDS: BISACODYL 5 MG TABLET PO SCH (00:29)
[2017-11-13] MEDS: LEVOTHYROXINE 50 MCG TABLET PO SCH (05:50)
[2017-11-13 06:58] LABS: Basophils % 0.5 % (0.0-0.8); Eosinophils # 0.3 10*3/uL (0.0-0.87); Eosinophils % 3.5 % (0.00-10.9); Hemoglobin 8.5 GM/DL (14.0-18.0); Immature Granulocytes % 0.4 %; Immature Granulocytes Absolute 0.03 #; Lymphocytes # 0.3 10*3/uL (1.4-4.0); Mean Corpuscular HGB Conc 30.4 GM/DL (32-36); Mean Corpuscular Hemoglobin 23 PG (27-34); Mean Corpuscular Volume 75.9 FL (87-102); Mean Platelet Volume 9.9 FL (9.6-12.0); Monocytes # 0.6 10*3/uL (0.11-0.8); Monocytes % 7.5 % (1.7-12.7); Neutrophils # 6.3 10*3/uL (1.4-7.4); Neutrophils % 84.1 % (38.7-73.9); Platelet Count 323 T/CUMM (130-400); Red Blood Count 3.69 MC/CUMM (3.8-5.5); Red Cell Distribution Width 17.1 % (9.3-17.3); White Blood Count 7.5 T/CUMM (4-12)
[2017-11-13 07:21] LABS: Eosinophils 1 % (0-10); Hypochromasia 1+; Lymphocytes 5 % (20-55); Segmented Neutrophils 90 % (50-85); Total Cells Counted 100
[2017-11-13 07:22] LABS: Microcytosis 1+; Ovalocytes Slight; Platelet Estimate Normal
[2017-11-13 07:31] LABS: Calcium 8.5 MG/DL (8.5-10.1); Osmolality,Calculated 295.3 MOS/KG (273-304); Potassium 4.1 MMOL/L (3.5-5.1)
[2017-11-13] MEDS: INSULIN LISPRO 100 UNIT/ML SUBCUT SCH ×4 (07:37→21:15)
[2017-11-13] MEDS: CHOLECALCIFEROL 5,000 UNIT TABLET PO SCH (09:41)
[2017-11-13] MEDS: CETIRIZINE 10 MG TABLET PO SCH (09:42)
[2017-11-13] MEDS: POTASSIUM CHLORIDE 20 MEQ TABLET PO SCH (09:42)
[2017-11-13] MEDS: ASPIRIN EC 81 MG TABLET PO SCH (09:42)
[2017-11-13] MEDS: amLODIPine 10 MG TABLET PO SCH (09:42)
[2017-11-13] MEDS: FUROSEMIDE 40 MG/4 ML VIAL IV SCH ×3 (09:42→21:15)
[2017-11-13] MEDS: metOLazone 5 MG TABLET PO SCH (09:42)
[2017-11-13] MEDS: CYANOCOBALAMIN 500 MCG TABLET PO SCH (09:42)
[2017-11-13] MEDS: PANTOPRAZOLE 40 MG TABLET PO SCH (09:42)
[2017-11-13] MEDS: MINOXIDIL 10 MG TABLET PO SCH ×2 (09:42→21:13)
[2017-11-13] MEDS: FLUTICASONE 50 MCG NASAL SPRAY 16 GM BOTTLE BOTH NARES SCH (09:43)
[2017-11-13] MEDS ORDERED: ETOMIDATE 20 MG/10 ML VIAL IV ONE (11:28)
[2017-11-13] MEDS: INSULIN GLARGINE 100 UNIT/ML SUBCUT SCH (21:14)
[2017-11-13] MEDS: MONTELUKAST 10 MG TABLET PO SCH (21:14)
[2017-11-13] MEDS: LATANOPROST 0.005% OPH SOLN 2.5 ML BOTTLE BOTH EYES SCH (21:28)
[2017-11-14] MEDS: LEVOTHYROXINE 50 MCG TABLET PO SCH (05:19)
[2017-11-14 05:58] LABS: Basophils % 0.4 % (0.0-0.8); Eosinophils # 0.3 10*3/uL (0.0-0.87); Eosinophils % 3.8 % (0.00-10.9); Hematocrit 27.7 VOL% (42.0-52.0); Hemoglobin 8.3 GM/DL (14.0-18.0); Immature Granulocytes % 0.4 %; Immature Granulocytes Absolute 0.03 #; Lymphocytes # 0.4 10*3/uL (1.4-4.0); Lymphocytes % 5.1 % (21.2-54.2); Mean Corpuscular Hemoglobin 23 PG (27-34); Mean Corpuscular Volume 76.7 FL (87-102); Mean Platelet Volume 10.1 FL (9.6-12.0); Monocytes # 0.5 10*3/uL (0.11-0.8); Monocytes % 6.6 % (1.7-12.7); Neutrophils # 5.7 10*3/uL (1.4-7.4); Neutrophils % 83.7 % (38.7-73.9); Platelet Count 305 T/CUMM (130-400); Red Blood Count 3.61 MC/CUMM (3.8-5.5); Red Cell Distribution Width 17.2 % (9.3-17.3); White Blood Count 6.8 T/CUMM (4-12)
[2017-11-14 06:24] LABS: Calcium 8.4 MG/DL (8.5-10.1); Potassium 4.3 MMOL/L (3.5-5.1)
[2017-11-14 06:41] LABS: Alanine Aminotransferase 15 U/L (16-61); Alkaline Phosphatase 74 U/L (45-117); Aspartate Amino Transferase 24 U/L (0-37); Bilirubin,Total < 0.39 MG/DL (0.2-1.0); Blood Urea Nitrogen 70 MG/DL (7-18); Calcium 8.5 MG/DL (8.5-10.1); Glucose 88 MG/DL (74-106); Osmolality,Calculated 302.1 MOS/KG (273-304); Potassium 4.3 MMOL/L (3.5-5.1); Sodium 142 MMOL/L (136-145); Total Protein 6.9 G/DL (6.4-8.3)
[2017-11-14] MEDS: INSULIN LISPRO 100 UNIT/ML SUBCUT SCH ×4 (07:54→22:02)
[2017-11-14] MEDS: CYANOCOBALAMIN 500 MCG TABLET PO SCH (09:10)
[2017-11-14] MEDS: amLODIPine 10 MG TABLET PO SCH (09:10)
[2017-11-14] MEDS: ASPIRIN EC 81 MG TABLET PO SCH (09:10)
[2017-11-14] MEDS: PANTOPRAZOLE 40 MG TABLET PO SCH (09:10)
[2017-11-14] MEDS: metOLazone 5 MG TABLET PO SCH ×2 (09:10→22:03)
[2017-11-14] MEDS: MINOXIDIL 10 MG TABLET PO SCH (09:10)
[2017-11-14] MEDS: CHOLECALCIFEROL 5,000 UNIT TABLET PO SCH (09:10)
[2017-11-14] MEDS: CETIRIZINE 10 MG TABLET PO SCH (09:10)
[2017-11-14] MEDS: FUROSEMIDE 40 MG/4 ML VIAL IV SCH ×3 (09:10→22:04)
[2017-11-14] MEDS: POTASSIUM CHLORIDE 20 MEQ TABLET PO SCH (09:10)
[2017-11-14] MEDS: FLUTICASONE 50 MCG NASAL SPRAY 16 GM BOTTLE BOTH NARES SCH (09:11)
[2017-11-14] MEDS: ISOSORBIDE MONONITRATE 30 MG TABLET PO SCH (10:34)
[2017-11-14] MEDS: CARVEDILOL 6.25 MG TABLET PO SCH ×2 (10:34→22:02)
[2017-11-14] MEDS: hydrALAZINE 25 MG TABLET PO SCH ×2 (16:18→22:01)
[2017-11-14] MEDS: INSULIN GLARGINE 100 UNIT/ML SUBCUT SCH (22:02)
[2017-11-14] MEDS: MONTELUKAST 10 MG TABLET PO SCH (22:03)
[2017-11-14] MEDS: ATORVASTATIN 20 MG TABLET PO SCH (22:03)
[2017-11-14] MEDS: LATANOPROST 0.005% OPH SOLN 2.5 ML BOTTLE BOTH EYES SCH (22:04)
[2017-11-15 06:07] LABS: Basophils % 0.5 % (0.0-0.8); Eosinophils # 0.3 10*3/uL (0.0-0.87); Eosinophils % 4.1 % (0.00-10.9); Hematocrit 26.3 VOL% (42.0-52.0); Immature Granulocytes % 0.6 %; Immature Granulocytes Absolute 0.04 #; Lymphocytes # 0.3 10*3/uL (1.4-4.0); Lymphocytes % 4.4 % (21.2-54.2); Mean Corpuscular HGB Conc 30.4 GM/DL (32-36); Mean Corpuscular Hemoglobin 23 PG (27-34); Monocytes # 0.5 10*3/uL (0.11-0.8); Monocytes % 7.8 % (1.7-12.7); Neutrophils # 5.5 10*3/uL (1.4-7.4); Neutrophils % 82.6 % (38.7-73.9); Platelet Count 308 T/CUMM (130-400); Red Blood Count 3.46 MC/CUMM (3.8-5.5); White Blood Count 6.7 T/CUMM (4-12)
[2017-11-15] MEDS: LEVOTHYROXINE 50 MCG TABLET PO SCH (06:27)
[2017-11-15 06:31] LABS: Eosinophils 6 % (0-10); Lymphocytes 3 % (20-55); Platelet Estimate Adequate; Segmented Neutrophils 84 % (50-85); Total Cells Counted 100
[2017-11-15 06:32] LABS: Giant Platelets Few; Hypochromasia 1+; Microcytosis Slight; Ovalocytes Slight
[2017-11-15 06:43] LABS: Albumin 3.3 G/DL (3.4-5.0); Bilirubin,Total 0.6 MG/DL (0.2-1.0); Calcium 8.1 MG/DL (8.5-10.1); Osmolality,Calculated 300.3 MOS/KG (273-304); Potassium 4.4 MMOL/L (3.5-5.1); Total Protein 6.7 G/DL (6.4-8.3)
[2017-11-15] MEDS: CARVEDILOL 6.25 MG TABLET PO SCH (08:58)
[2017-11-15] MEDS: CETIRIZINE 10 MG TABLET PO SCH (08:59)
[2017-11-15] MEDS: metOLazone 5 MG TABLET PO SCH ×2 (08:59→20:06)
[2017-11-15] MEDS: PANTOPRAZOLE 40 MG TABLET PO SCH (08:59)
[2017-11-15] MEDS: ISOSORBIDE MONONITRATE 30 MG TABLET PO SCH (08:59)
[2017-11-15] MEDS: FUROSEMIDE 40 MG/4 ML VIAL IV SCH ×2 (08:59→15:37)
[2017-11-15] MEDS: CHOLECALCIFEROL 5,000 UNIT TABLET PO SCH (08:59)
[2017-11-15] MEDS: POTASSIUM CHLORIDE 20 MEQ TABLET PO SCH (08:59)
[2017-11-15] MEDS: ASPIRIN EC 81 MG TABLET PO SCH (08:59)
[2017-11-15] MEDS: CYANOCOBALAMIN 500 MCG TABLET PO SCH (08:59)
[2017-11-15] MEDS: hydrALAZINE 25 MG TABLET PO SCH (08:59)
[2017-11-15] MEDS: INSULIN LISPRO 100 UNIT/ML SUBCUT SCH ×4 (08:59→20:13)
[2017-11-15] MEDS ORDERED: amLODIPine 5 MG TABLET PO SCH (09:00)
[2017-11-15] MEDS: FLUTICASONE 50 MCG NASAL SPRAY 16 GM BOTTLE BOTH NARES SCH (09:00)
[2017-11-15] MEDS ORDERED: FUROSEMIDE 40 MG/4 ML VIAL IV SCH (15:11)
[2017-11-15] MEDS: FUROSEMIDE INJ 240 MG in SODIUM CHLORIDE 0.9% 50 ML IV SCH ×2 (16:07→20:12)
[2017-11-15] MEDS: MONTELUKAST 10 MG TABLET PO SCH (20:06)
[2017-11-15] MEDS: INSULIN GLARGINE 100 UNIT/ML SUBCUT SCH (20:06)
[2017-11-15] MEDS: ATORVASTATIN 20 MG TABLET PO SCH (20:06)
[2017-11-15] MEDS: CARVEDILOL 12.5 MG TABLET PO SCH (20:06)
[2017-11-15] MEDS: LATANOPROST 0.005% OPH SOLN 2.5 ML BOTTLE BOTH EYES SCH (20:07)
[2017-11-16 05:51] LABS: Basophils # 0.1 10*3/uL (0.0-0.2); Basophils % 0.8 % (0.0-0.8); Eosinophils # 0.2 10*3/uL (0.0-0.87); Eosinophils % 3.2 % (0.00-10.9); Hematocrit 26.8 VOL% (42.0-52.0); Immature Granulocytes % 0.6 %; Immature Granulocytes Absolute 0.04 #; Lymphocytes # 0.3 10*3/uL (1.4-4.0); Lymphocytes % 4.8 % (21.2-54.2); Mean Corpuscular HGB Conc 29.9 GM/DL (32-36); Mean Corpuscular Hemoglobin 23 PG (27-34); Mean Corpuscular Volume 77.5 FL (87-102); Mean Platelet Volume 10.3 FL (9.6-12.0); Monocytes # 0.5 10*3/uL (0.11-0.8); Neutrophils # 5.2 10*3/uL (1.4-7.4); Neutrophils % 82.6 % (38.7-73.9); Platelet Count 298 T/CUMM (130-400); Red Blood Count 3.46 MC/CUMM (3.8-5.5); Red Cell Distribution Width 17.3 % (9.3-17.3); White Blood Count 6.2 T/CUMM (4-12)
[2017-11-16] MEDS: LEVOTHYROXINE 50 MCG TABLET PO SCH (06:05)
[2017-11-16 06:18] LABS: Albumin 3.1 G/DL (3.4-5.0); Bilirubin,Total 0.5 MG/DL (0.2-1.0); Calcium 8.3 MG/DL (8.5-10.1); Osmolality,Calculated 300.5 MOS/KG (273-304); Potassium 4.6 MMOL/L (3.5-5.1); Total Protein 6.9 G/DL (6.4-8.3)
[2017-11-16 06:21] LABS: Eosinophils 5 % (0-10); Giant Platelets Few; Hypochromasia 1+; Lymphocytes 6 % (20-55); Ovalocytes Slight; Platelet Estimate Adequate; Segmented Neutrophils 82 % (50-85); Total Cells Counted 100
[2017-11-16 06:22] LABS: Microcytosis Slight
[2017-11-16 06:40] LABS: Calcium 8.3 MG/DL (8.5-10.1); Osmolality,Calculated 304.3 MOS/KG (273-304); Potassium 4.7 MMOL/L (3.5-5.1)
[2017-11-16] MEDS: INSULIN LISPRO 100 UNIT/ML SUBCUT SCH ×4 (07:53→20:33)
[2017-11-16] MEDS: CHOLECALCIFEROL 5,000 UNIT TABLET PO SCH (09:03)
[2017-11-16] MEDS: PANTOPRAZOLE 40 MG TABLET PO SCH (09:03)
[2017-11-16] MEDS: CYANOCOBALAMIN 500 MCG TABLET PO SCH (09:03)
[2017-11-16] MEDS: ISOSORBIDE MONONITRATE 30 MG TABLET PO SCH (09:03)
[2017-11-16] MEDS: CETIRIZINE 10 MG TABLET PO SCH (09:05)
[2017-11-16] MEDS: ASPIRIN EC 81 MG TABLET PO SCH (09:05)
[2017-11-16] MEDS: POTASSIUM CHLORIDE 20 MEQ TABLET PO SCH (09:06)
[2017-11-16] MEDS: FUROSEMIDE INJ 240 MG in SODIUM CHLORIDE 0.9% 50 ML IV SCH ×3 (09:07→20:33)
[2017-11-16] MEDS: FLUTICASONE 50 MCG NASAL SPRAY 16 GM BOTTLE BOTH NARES SCH (09:07)
[2017-11-16] MEDS: CARVEDILOL 12.5 MG TABLET PO SCH ×2 (09:07→20:30)
[2017-11-16] MEDS: metOLazone 5 MG TABLET PO SCH ×2 (10:25→20:30)
[2017-11-16] MEDS: MONTELUKAST 10 MG TABLET PO SCH (20:30)
[2017-11-16] MEDS: ATORVASTATIN 20 MG TABLET PO SCH (20:30)
[2017-11-16] MEDS: LATANOPROST 0.005% OPH SOLN 2.5 ML BOTTLE BOTH EYES SCH (20:31)
[2017-11-16] MEDS: INSULIN GLARGINE 100 UNIT/ML SUBCUT SCH (20:33)
[2017-11-17] MEDS: LEVOTHYROXINE 50 MCG TABLET PO SCH (05:31)
[2017-11-17 05:51] LABS: Basophils % 0.6 % (0.0-0.8); Eosinophils # 0.3 10*3/uL (0.0-0.87); Eosinophils % 4.3 % (0.00-10.9); Hematocrit 29.3 VOL% (42.0-52.0); Hemoglobin 8.5 GM/DL (14.0-18.0); Immature Granulocytes % 0.3 %; Immature Granulocytes Absolute 0.02 #; Lymphocytes # 0.4 10*3/uL (1.4-4.0); Lymphocytes % 5.9 % (21.2-54.2); Mean Corpuscular Hemoglobin 23 PG (27-34); Mean Corpuscular Volume 77.7 FL (87-102); Mean Platelet Volume 10.3 FL (9.6-12.0); Monocytes # 0.6 10*3/uL (0.11-0.8); Monocytes % 8.4 % (1.7-12.7); Neutrophils # 5.5 10*3/uL (1.4-7.4); Neutrophils % 80.5 % (38.7-73.9); Platelet Count 325 T/CUMM (130-400); Red Blood Count 3.77 MC/CUMM (3.8-5.5); Red Cell Distribution Width 17.4 % (9.3-17.3); White Blood Count 6.8 T/CUMM (4-12)
[2017-11-17] MEDS ORDERED: CLINDAMYCIN INJ 900 MG in PREMIX 1 EACH IV ONE (06:00)
[2017-11-17 06:31] LABS: Calcium 8.2 MG/DL (8.5-10.1); Osmolality,Calculated 306.5 MOS/KG (273-304); Potassium 4.7 MMOL/L (3.5-5.1)
[2017-11-17 06:56] LABS: Alanine Aminotransferase 19 U/L (16-61); Albumin 3.5 G/DL (3.4-5.0); Alkaline Phosphatase 75 U/L (45-117); Aspartate Amino Transferase 22 U/L (0-37); Bilirubin,Total < 0.39 MG/DL (0.2-1.0); Blood Urea Nitrogen 95 MG/DL (7-18); Calcium 8.5 MG/DL (8.5-10.1); Glucose 136 MG/DL (74-106); Osmolality,Calculated 307.5 MOS/KG (273-304); Potassium 4.7 MMOL/L (3.5-5.1); Sodium 139 MMOL/L (136-145); Total Protein 7.2 G/DL (6.4-8.3)
[2017-11-17] MEDS: INSULIN LISPRO 100 UNIT/ML SUBCUT SCH ×4 (07:51→22:00)
[2017-11-17] MEDS: CARVEDILOL 12.5 MG TABLET PO SCH ×2 (07:59→21:44)
[2017-11-17] MEDS: ISOSORBIDE MONONITRATE 30 MG TABLET PO SCH (07:59)
[2017-11-17] MEDS: FLUTICASONE 50 MCG NASAL SPRAY 16 GM BOTTLE BOTH NARES SCH (08:18)
[2017-11-17] MEDS: ASPIRIN EC 81 MG TABLET PO SCH (08:18)
[2017-11-17] MEDS: POTASSIUM CHLORIDE 20 MEQ TABLET PO SCH (08:18)
[2017-11-17] MEDS: FUROSEMIDE INJ 240 MG in SODIUM CHLORIDE 0.9% 50 ML IV SCH ×3 (08:18→21:44)
[2017-11-17] MEDS: CETIRIZINE 10 MG TABLET PO SCH (08:19)
[2017-11-17] MEDS: metOLazone 5 MG TABLET PO SCH ×2 (08:19→21:44)
[2017-11-17] MEDS: PANTOPRAZOLE 40 MG TABLET PO SCH (08:19)
[2017-11-17] MEDS: CHOLECALCIFEROL 5,000 UNIT TABLET PO SCH (08:19)
[2017-11-17] MEDS: CYANOCOBALAMIN 500 MCG TABLET PO SCH (08:19)
[2017-11-17] MEDS ORDERED: LIDOCAINE 1%/EPI INJ 20 ML VIAL ONE (08:27)
[2017-11-17] MEDS ORDERED: BUPIVACAINE 0.25% 50 ML VIAL ONE (08:28)
[2017-11-17] MEDS ORDERED: HEPARIN 5,000 UNIT/1 ML VIAL ONE (08:30)
[2017-11-17] MEDS ORDERED: PROPOFOL 200 MG/20 ML VIAL IV ONE (09:51)
[2017-11-17] MEDS ORDERED: fentaNYL 100 MCG/2 ML VIAL ONE (09:52)
[2017-11-17 11:55] LABS: Hepatitis A Ab IgM Result Negative (Negative); Hepatitis B Core IgM Quant 0.19 Index; Hepatitis B Core IgM Result Negative (Negative); Hepatitis B Surface Ag Quant < 0.10 Index; Hepatitis B Surface Ag Result Negative (Negative); Hepatitis C Virus Ab Quant 0.12 Index; Hepatitis C Virus Ab Result Negative (Negative)
[2017-11-17] MEDS ORDERED: HEPARIN 10,000 UNIT/10 ML VIAL IV SCH (14:30)
[2017-11-17] MEDS: ATORVASTATIN 20 MG TABLET PO SCH (21:44)
[2017-11-17] MEDS: MONTELUKAST 10 MG TABLET PO SCH (21:44)
[2017-11-17] MEDS: LATANOPROST 0.005% OPH SOLN 2.5 ML BOTTLE BOTH EYES SCH (21:45)
[2017-11-17] MEDS: INSULIN GLARGINE 100 UNIT/ML SUBCUT SCH (21:58)
[2017-11-18 05:41] LABS: Albumin 3.2 G/DL (3.4-5.0); Bilirubin,Total 0.4 MG/DL (0.2-1.0); Calcium 8.1 MG/DL (8.5-10.1); Osmolality,Calculated 298.5 MOS/KG (273-304); Potassium 4.2 MMOL/L (3.5-5.1); Total Protein 6.4 G/DL (6.4-8.3)
[2017-11-18] MEDS: LEVOTHYROXINE 50 MCG TABLET PO SCH (06:25)
[2017-11-18 06:34] LABS: Basophils # 0.1 10*3/uL (0.0-0.2); Basophils % 0.7 % (0.0-0.8); Eosinophils # 0.2 10*3/uL (0.0-0.87); Eosinophils % 3.4 % (0.00-10.9); Hematocrit 26.4 VOL% (42.0-52.0); Hemoglobin 8.2 GM/DL (14.0-18.0); Immature Granulocytes % 1.4 %; Lymphocytes # 0.4 10*3/uL (1.4-4.0); Lymphocytes % 5.6 % (21.2-54.2); Mean Corpuscular HGB Conc 31.1 GM/DL (32-36); Mean Corpuscular Hemoglobin 24 PG (27-34); Mean Corpuscular Volume 75.6 FL (87-102); Mean Platelet Volume 10.6 FL (9.6-12.0); Monocytes # 0.8 10*3/uL (0.11-0.8); Neutrophils # 5.5 10*3/uL (1.4-7.4); Neutrophils % 77.9 % (38.7-73.9); Platelet Count 293 T/CUMM (130-400); Red Blood Count 3.49 MC/CUMM (3.8-5.5); Red Cell Distribution Width 17.2 % (9.3-17.3); White Blood Count 7.1 T/CUMM (4-12)
[2017-11-18] MEDS: CHOLECALCIFEROL 5,000 UNIT TABLET PO SCH (08:07)
[2017-11-18] MEDS: CARVEDILOL 12.5 MG TABLET PO SCH ×2 (08:07→20:50)
[2017-11-18] MEDS: PANTOPRAZOLE 40 MG TABLET PO SCH (08:07)
[2017-11-18] MEDS: ISOSORBIDE MONONITRATE 30 MG TABLET PO SCH (08:07)
[2017-11-18] MEDS: CYANOCOBALAMIN 500 MCG TABLET PO SCH (08:07)
[2017-11-18] MEDS: metOLazone 5 MG TABLET PO SCH ×2 (08:07→20:50)
[2017-11-18] MEDS: CETIRIZINE 10 MG TABLET PO SCH (08:07)
[2017-11-18] MEDS: ASPIRIN EC 81 MG TABLET PO SCH (08:07)
[2017-11-18] MEDS: INSULIN LISPRO 100 UNIT/ML SUBCUT SCH ×4 (08:07→20:59)
[2017-11-18] MEDS: FLUTICASONE 50 MCG NASAL SPRAY 16 GM BOTTLE BOTH NARES SCH (08:08)
[2017-11-18] MEDS: POTASSIUM CHLORIDE 20 MEQ TABLET PO SCH (08:08)
[2017-11-18] MEDS: FUROSEMIDE INJ 240 MG in SODIUM CHLORIDE 0.9% 50 ML IV SCH ×3 (08:08→20:57)
[2017-11-18] MEDS: MONTELUKAST 10 MG TABLET PO SCH (20:50)
[2017-11-18] MEDS: ATORVASTATIN 20 MG TABLET PO SCH (20:50)
[2017-11-18] MEDS: INSULIN GLARGINE 100 UNIT/ML SUBCUT SCH (20:52)
[2017-11-18] MEDS: LATANOPROST 0.005% OPH SOLN 2.5 ML BOTTLE BOTH EYES SCH (21:00)
[2017-11-19] MEDS: LEVOTHYROXINE 50 MCG TABLET PO SCH (07:02)
[2017-11-19] MEDS: INSULIN LISPRO 100 UNIT/ML SUBCUT SCH ×4 (07:26→21:34)
[2017-11-19] MEDS: PANTOPRAZOLE 40 MG TABLET PO SCH (08:46)
[2017-11-19] MEDS: ASPIRIN EC 81 MG TABLET PO SCH (08:46)
[2017-11-19] MEDS: CYANOCOBALAMIN 500 MCG TABLET PO SCH (08:46)
[2017-11-19] MEDS: CHOLECALCIFEROL 5,000 UNIT TABLET PO SCH (08:46)
[2017-11-19] MEDS: CARVEDILOL 12.5 MG TABLET PO SCH ×2 (08:46→21:36)
[2017-11-19] MEDS: POTASSIUM CHLORIDE 20 MEQ TABLET PO SCH (08:46)
[2017-11-19] MEDS: ISOSORBIDE MONONITRATE 30 MG TABLET PO SCH (08:46)
[2017-11-19] MEDS: metOLazone 5 MG TABLET PO SCH ×2 (08:47→21:36)
[2017-11-19] MEDS: CETIRIZINE 10 MG TABLET PO SCH (08:47)
[2017-11-19] MEDS: FLUTICASONE 50 MCG NASAL SPRAY 16 GM BOTTLE BOTH NARES SCH (09:01)
[2017-11-19] MEDS: FUROSEMIDE INJ 240 MG in SODIUM CHLORIDE 0.9% 50 ML IV SCH (10:12)
[2017-11-19] MEDS: INSULIN GLARGINE 100 UNIT/ML SUBCUT SCH (21:34)
[2017-11-19] MEDS: ATORVASTATIN 20 MG TABLET PO SCH (21:36)
[2017-11-19] MEDS: MONTELUKAST 10 MG TABLET PO SCH (21:36)
[2017-11-19] MEDS: LATANOPROST 0.005% OPH SOLN 2.5 ML BOTTLE BOTH EYES SCH (21:40)
[2017-11-20] MEDS: INSULIN LISPRO 100 UNIT/ML SUBCUT SCH ×3 (08:12→15:35)
[2017-11-20] MEDS: CARVEDILOL 12.5 MG TABLET PO SCH (08:14)
[2017-11-20] MEDS: metOLazone 5 MG TABLET PO SCH (08:14)
[2017-11-20] MEDS: CHOLECALCIFEROL 5,000 UNIT TABLET PO SCH (08:14)
[2017-11-20] MEDS: CETIRIZINE 10 MG TABLET PO SCH (08:14)
[2017-11-20] MEDS: PANTOPRAZOLE 40 MG TABLET PO SCH (08:14)
[2017-11-20] MEDS: POTASSIUM CHLORIDE 20 MEQ TABLET PO SCH (08:15)
[2017-11-20] MEDS: LEVOTHYROXINE 50 MCG TABLET PO SCH (08:15)
[2017-11-20] MEDS: ASPIRIN EC 81 MG TABLET PO SCH (08:15)
[2017-11-20] MEDS: ISOSORBIDE MONONITRATE 30 MG TABLET PO SCH (08:15)
[2017-11-20] MEDS: FLUTICASONE 50 MCG NASAL SPRAY 16 GM BOTTLE BOTH NARES SCH (08:15)
[2017-11-20] MEDS: CYANOCOBALAMIN 500 MCG TABLET PO SCH (08:15)
[2017-11-20 14:47] VITALS: BP 129/99
== END 2017-11-20 16:43 | disposition home or self-care (01) | DRG 291 ==
LOC: N.ED 16:07 → N.EDINP 20:47 → SUATTDRO 20:47 → N.5E 22:25
PROVIDERS: ADMIT Internal Medicine; ATTEND Internal Medicine

== ENCOUNTER 2018-04-16 15:31 | Inpatient (IN) ==
[2018-04-16 18:56] LABS: Basophils # 0.1 10*3/uL (0.0-0.2); Basophils % 0.5 % (0.0-0.8); Eosinophils # 0.2 10*3/uL (0.0-0.87); Eosinophils % 1.5 % (0.00-10.9); Hematocrit 31.3 VOL% (42.0-52.0); Hemoglobin 10.1 GM/DL (14.0-18.0); Immature Granulocytes % 0.7 %; Immature Granulocytes Absolute 0.07 #; Lymphocytes # 0.8 10*3/uL (1.4-4.0); Lymphocytes % 7.5 % (21.2-54.2); Mean Corpuscular HGB Conc 32.3 GM/DL (32-36); Mean Corpuscular Hemoglobin 29 PG (27-34); Mean Corpuscular Volume 88.9 FL (87-102); Mean Platelet Volume 9.1 FL (9.6-12.0); Monocytes # 0.9 10*3/uL (0.11-0.8); Neutrophils # 8.2 10*3/uL (1.4-7.4); Neutrophils % 80.8 % (38.7-73.9); Platelet Count 324 T/CUMM (130-400); Red Blood Count 3.52 MC/CUMM (3.8-5.5); Red Cell Distribution Width 16.1 % (9.3-17.3); White Blood Count 10.2 T/CUMM (4-12)
[2018-04-16 19:15] LABS: Albumin 2.7 G/DL (3.4-5.0); Bilirubin,Total 0.4 MG/DL (0.2-1.0); Calcium 8.7 MG/DL (8.5-10.1); Osmolality,Calculated 284.4 MOS/KG (273-304); Potassium 3.5 MMOL/L (3.5-5.1); Total Protein 8.2 G/DL (6.4-8.3)
[2018-04-16] MEDS ORDERED: DEXTROSE 50% 25 GM/50 ML VIAL IV PRN (20:27)
[2018-04-16] MEDS ORDERED: GLUCAGON 1 MG VIAL IM PRN (20:27)
[2018-04-16] MEDS ORDERED: SERTRALINE 50 MG TABLET PO PRN (20:38)
[2018-04-16] MEDS: INSULIN GLARGINE 100 UNIT/ML SUBCUT SCH (23:36)
[2018-04-16] MEDS: INSULIN LISPRO 100 UNIT/ML SUBCUT SCH (23:36)
[2018-04-16] MEDS: ATORVASTATIN 20 MG TABLET PO SCH (23:44)
[2018-04-16] MEDS: CARVEDILOL 12.5 MG TABLET PO SCH (23:44)
[2018-04-16] MEDS: MONTELUKAST 10 MG TABLET PO SCH (23:45)
[2018-04-16] MEDS: HEPARIN 5,000 UNIT/1 ML VIAL SUBCUT SCH (23:53)
[2018-04-17] MEDS: LATANOPROST 0.005% OPH SOLN 2.5 ML BOTTLE BOTH EYES SCH ×2 (03:07→23:31)
[2018-04-17] MEDS: LEVOTHYROXINE 50 MCG TABLET PO SCH (05:21)
[2018-04-17] MEDS ORDERED: VANCOMYCIN INJ 1,000 MG in SODIUM CHLORIDE 0.9% 250 ML IV ONE (06:41)
[2018-04-17 07:38] LABS: Basophils # 0.1 10*3/uL (0.0-0.2); Basophils % 0.6 % (0.0-0.8); Eosinophils # 0.1 10*3/uL (0.0-0.87); Eosinophils % 1.6 % (0.00-10.9); Hematocrit 32.2 VOL% (42.0-52.0); Hemoglobin 10.1 GM/DL (14.0-18.0); Immature Granulocytes % 0.7 %; Immature Granulocytes Absolute 0.06 #; Lymphocytes # 0.7 10*3/uL (1.4-4.0); Lymphocytes % 8.3 % (21.2-54.2); Mean Corpuscular HGB Conc 31.4 GM/DL (32-36); Mean Corpuscular Hemoglobin 29 PG (27-34); Mean Corpuscular Volume 90.7 FL (87-102); Mean Platelet Volume 9.3 FL (9.6-12.0); Monocytes # 0.8 10*3/uL (0.11-0.8); Monocytes % 9.7 % (1.7-12.7); Neutrophils # 6.8 10*3/uL (1.4-7.4); Neutrophils % 79.1 % (38.7-73.9); Platelet Count 295 T/CUMM (130-400); Red Blood Count 3.55 MC/CUMM (3.8-5.5); Red Cell Distribution Width 15.9 % (9.3-17.3); White Blood Count 8.7 T/CUMM (4-12)
[2018-04-17 08:05] LABS: Calcium 8.6 MG/DL (8.5-10.1); Osmolality,Calculated 284.3 MOS/KG (273-304); Potassium 3.5 MMOL/L (3.5-5.1)
[2018-04-17] MEDS: ASPIRIN EC 81 MG TABLET PO SCH (08:36)
[2018-04-17] MEDS: INSULIN LISPRO 100 UNIT/ML SUBCUT SCH ×4 (08:36→23:30)
[2018-04-17] MEDS: CARVEDILOL 12.5 MG TABLET PO SCH ×2 (08:37→23:29)
[2018-04-17] MEDS: amLODIPine 10 MG TABLET PO SCH (08:37)
[2018-04-17] MEDS: CHOLECALCIFEROL 5,000 UNIT TABLET PO SCH (08:37)
[2018-04-17] MEDS: CYANOCOBALAMIN 500 MCG TABLET PO SCH (11:29)
[2018-04-17] MEDS ORDERED: LORATADINE 10 MG TABLET PO PRN (11:29)
[2018-04-17] MEDS: FLUTICASONE 50 MCG NASAL SPRAY 16 GM BOTTLE BOTH NARES SCH (11:41)
[2018-04-17] MEDS ORDERED: BUPIVACAINE 0.5% 50 ML VIAL ONE (11:47)
[2018-04-17] MEDS ORDERED: fentaNYL 100 MCG/2 ML VIAL ONE (13:20)
[2018-04-17] MEDS ORDERED: SEVOFLURANE 1 UNIT/15 MINUTE INH ONE (13:20)
[2018-04-17] MEDS ORDERED: PROPOFOL 200 MG/20 ML VIAL IV ONE (13:20)
[2018-04-17] MEDS ORDERED: MIDAZOLAM 2 MG/2 ML VIAL ONE (13:21)
[2018-04-17] MEDS ORDERED: PHENYLEPHRINE 1 MG/10 ML SYRINGE IV ONE (13:21)
[2018-04-17] MEDS ORDERED: ONDANSETRON 4 MG/2 ML VIAL IV PRN (13:33)
[2018-04-17] MEDS ORDERED: ONDANSETRON 4 MG/2 ML VIAL ONE (13:34)
[2018-04-17] MEDS ORDERED: MORPHINE 10 MG/1 ML VIAL ONE (13:34)
[2018-04-17] MEDS: MORPHINE 10 MG/1 ML VIAL IV PRN ×5 (13:34→13:59)
[2018-04-17] MEDS: HEPARIN 5,000 UNIT/1 ML VIAL SUBCUT SCH ×2 (14:04→23:31)
[2018-04-17] MEDS ORDERED: EPOETIN ALFA 10,000 UNIT/1 ML VIAL IV PRN (17:53)
[2018-04-17] MEDS ORDERED: MORPHINE 4 MG/1 ML VIAL IV PRN (18:01)
[2018-04-17] MEDS: MONTELUKAST 10 MG TABLET PO SCH (23:29)
[2018-04-17] MEDS: ATORVASTATIN 20 MG TABLET PO SCH (23:29)
[2018-04-17] MEDS: INSULIN GLARGINE 100 UNIT/ML SUBCUT SCH (23:31)
[2018-04-18] MEDS: HEPARIN 5,000 UNIT/1 ML VIAL SUBCUT SCH ×3 (06:14→21:29)
[2018-04-18] MEDS: LEVOTHYROXINE 50 MCG TABLET PO SCH (06:15)
[2018-04-18 07:44] LABS: Basophils % 0.4 % (0.0-0.8); Eosinophils # 0.2 10*3/uL (0.0-0.87); Eosinophils % 2.3 % (0.00-10.9); Hematocrit 31.6 VOL% (42.0-52.0); Hemoglobin 10.1 GM/DL (14.0-18.0); Immature Granulocytes % 0.6 %; Immature Granulocytes Absolute 0.06 #; Lymphocytes # 0.5 10*3/uL (1.4-4.0); Lymphocytes % 5.4 % (21.2-54.2); Mean Corpuscular Hemoglobin 29 PG (27-34); Mean Corpuscular Volume 89.3 FL (87-102); Mean Platelet Volume 9.4 FL (9.6-12.0); Monocytes # 0.9 10*3/uL (0.11-0.8); Monocytes % 8.5 % (1.7-12.7); Neutrophils # 8.3 10*3/uL (1.4-7.4); Neutrophils % 82.8 % (38.7-73.9); Platelet Count 312 T/CUMM (130-400); Red Blood Count 3.54 MC/CUMM (3.8-5.5); Red Cell Distribution Width 16.1 % (9.3-17.3)
[2018-04-18 08:04] LABS: Calcium 8.1 MG/DL (8.5-10.1); Free T4 (Free Thyroxine) 0.99 NG/DL (0.76-1.46); Osmolality,Calculated 287.3 MOS/KG (273-304)
[2018-04-18] MEDS: ONDANSETRON 4 MG/2 ML VIAL IV PRN ×3 (08:07→21:29)
[2018-04-18] MEDS: FLUTICASONE 50 MCG NASAL SPRAY 16 GM BOTTLE BOTH NARES SCH (09:23)
[2018-04-18] MEDS: amLODIPine 10 MG TABLET PO SCH (09:24)
[2018-04-18] MEDS: ASPIRIN EC 81 MG TABLET PO SCH (09:24)
[2018-04-18] MEDS: INSULIN LISPRO 100 UNIT/ML SUBCUT SCH ×4 (09:24→20:06)
[2018-04-18] MEDS: CARVEDILOL 12.5 MG TABLET PO SCH ×2 (09:25→22:44)
[2018-04-18] MEDS: CYANOCOBALAMIN 500 MCG TABLET PO SCH (09:25)
[2018-04-18] MEDS: CHOLECALCIFEROL 5,000 UNIT TABLET PO SCH ×2 (09:31→10:04)
[2018-04-18] MEDS ORDERED: VANCOMYCIN INJ 500 MG in SODIUM CHLORIDE 0.9% 100 ML IV PRN (11:50)
[2018-04-18] MEDS ORDERED: VANCOMYCIN INJ 1,250 MG in SODIUM CHLORIDE 0.9% 250 ML IV ONE (17:00)
[2018-04-18] MEDS: INSULIN GLARGINE 100 UNIT/ML SUBCUT SCH (21:28)
[2018-04-18] MEDS: LATANOPROST 0.005% OPH SOLN 2.5 ML BOTTLE BOTH EYES SCH (21:28)
[2018-04-18] MEDS: MONTELUKAST 10 MG TABLET PO SCH (22:44)
[2018-04-18] MEDS: ATORVASTATIN 20 MG TABLET PO SCH (22:44)
[2018-04-19] MEDS: HEPARIN 5,000 UNIT/1 ML VIAL SUBCUT SCH (06:03)
[2018-04-19] MEDS: LEVOTHYROXINE 50 MCG TABLET PO SCH (06:03)
[2018-04-19] MEDS: INSULIN LISPRO 100 UNIT/ML SUBCUT SCH ×2 (08:57→11:00)
[2018-04-19] MEDS: CARVEDILOL 12.5 MG TABLET PO SCH (08:58)
[2018-04-19] MEDS: CYANOCOBALAMIN 500 MCG TABLET PO SCH (08:58)
[2018-04-19] MEDS: ASPIRIN EC 81 MG TABLET PO SCH (08:58)
[2018-04-19] MEDS: amLODIPine 10 MG TABLET PO SCH (08:58)
[2018-04-19] MEDS: CHOLECALCIFEROL 5,000 UNIT TABLET PO SCH (08:58)
[2018-04-19] MEDS: FLUTICASONE 50 MCG NASAL SPRAY 16 GM BOTTLE BOTH NARES SCH (08:58)
[2018-04-19 17:43] VITALS: BP 112/52
== END 2018-04-19 19:05 | disposition home health service (06) | DRG 239 ==
LOC: N.EDINP 15:31 → N.ED 15:31 → SUATTDRO 20:27 → N.5E 21:54
PROVIDERS: ADMIT Internal Medicine; ATTEND Internal Medicine